=== PATIENT | male | born 1990 | race Caucasian/White ===

== ENCOUNTER → 2018-08-05 09:54 | Outpatient (CLI) | payer MEDICAID, SELFPAY ==
[2018-08-05 14:05] LABS: Basophils % 0.4 % (0.1-2.0); Eosinophils # 0.2 K/mm3 (0.0-0.4); Eosinophils % 2.3 % (0.1-12.0); Hematocrit 51.2 % (42.0-52.0); Hemoglobin 16.8 g/dL (14.1-18.0); Lymphocytes % 30.3 % (10-50); Mean Corpuscular HGB Conc 32.8 g/dL (31.8-35.4); Mean Corpuscular Hemoglobin 30.5 pg (27.0-31.2); Mean Platelet Volume 7.6 fl (7.4-10.4); Monocytes # 0.5 K/mm3 (0.1-1.0); Monocytes % 7.9 % (1.7-9.3); Neutrophils # 3.9 K/mm3 (1.8-7.8); Neutrophils % 59.2 % (37.0-80.0); Platelet Count 390 K/mm3 (142-424); Red Cell Distribution Width 13.2 % (11.5-17.5); White Blood Count 6.5 K/mm3 (4.8-10.8)
[2018-08-05 14:50] LABS: Bilirubin,Direct 0.1 mg/dL (0.0-0.2)
[2018-08-05 14:57] LABS: Alanine Aminotransferase 69 U/L (12-78); Albumin Level 4.6 gm/dL (3.4-5.0); Albumin/Globulin Ratio 1.2 (1.1-1.8); Alkaline Phosphatase 75 U/L (46-116); Anion Gap 18.9 mEq/L (5-15); Aspartate Amino Transferase 27 U/L (15-37); Bilirubin,Total 0.6 mg/dL (0.2-1.0); Blood Urea Nitrogen 13 mg/dL (7-18); Calcium 9.4 mg/dL (8.5-10.1); Carbon Dioxide 23 mmol/L (21.0-32.0); Chloride 100 mmol/L (98-107); Chol/HDL Ratio 9.8 (1-3.5); Cholesterol 244 mg/dL (140-200); Creatinine,Serum 1.12 mg/dL (0.70-1.30); Estimated Glomerular Filt Rate 78 ml/min (>60); GFR (African American) 94 ML/MIN (>60); Globulin 3.8 gm/dl (1.3-3.2); Glucose 109 mg/dL (74-106); HDL Cholesterol 25 mg/dL (27-67); LDL Cholesterol 186 mg/dL (0-130); Potassium 3.9 mmoL/L (3.5-5.1); Sodium 138 mmol/L (136-145); Total Protein,Serum 8.4 gm/dL (6.4-8.2); Triglycerides 164 mg/dL (30-200); VLDL Cholesterol 33 mg/dL (0-40)
== END ==
PROVIDERS: Physician Assistant Medical; PCP Nurse Practitioner Family; Visit Provider Nurse Practitioner Family
DX: Z13.220 Encounter for screening for lipoid disorders (principal); Z13.89 Encounter for screening for other disorder; B35.1 Tinea unguium; Z51.81 Encounter for therapeutic drug level monitoring
CPT/HCPCS: 36415; 80053; 80061; 82248; 84443; 85025

== ENCOUNTER 2023-11-02 13:40 | Inpatient (IN) | payer OTHER, SELFPAY ==
[2023-11-02] VITALS (18 sets, daily range): BP systolic 124–164; BP diastolic 83–109; PULSE 90–138; RESP 15–20; TEMP 37–38; O2SAT 91–100; BMI 32.5; BMI 33.4
--- NOTE | 2023-11-02 | CA_ITS ---
APPROVED REPORT EXAM: Comprehensive 2D, Doppler, and color-flow Echocardiogram Coat Examiner: JERMAN Hutton, RVS Ht: 5 ft 8 in Wt: 219lbs BSA: 2.12 BP: 154/102 mmHg Rhythm: ABN EKG Indications: s/p cardiac cath with coronary stenting of the distal LAD, STEMI, CP, Smoker, SOB Echo Enhancing Agent Comments: Technically limited exam due to defibrillator pads in place during exam/patient supine, Best exam possible in named conditions 2D Dimensions IVSd 0.99 cm M: 0.6-1.2 LVEF (Visual) 64.00 % PWd 0.93 cm M: 0.6 - 1.2 LVDd 4.63 cm M: 4.2 - 5.9 LVDs 3.02 cm M: 2.5 - 4.0 Left Atrium 3.93 cm M: 3.0 - 4.0 M-Mode Dimensions RVDd 2.52 cm (0.9-2.6) LA Diam 3.19 cm (1.9-4.0) LVDd 4.04 cm (3.5-5.7) LVDs 3.30 cm (3.5-5.7) IVSd 1.68 cm (0.6-1.1) PWd 1.33 cm (0.6-1.1) EF (Teich) 38.50% EPSs 0.38 cm FS 18.30% EDV (Teich) 71.70 mL TAPSE 1.84 (<1.7) ESV (Teich) 44.10 mL LV Diastology E Decel Time 170 (160-240 msec) E/A Ratio 0.81 MED A' 9.80 cm/s LAT A' 8.50 cm/s Aortic Valve AoV Peak [place]. 139.0 (50-130 cm/s) AO Peak GR. 7.70 mmHg AO Mean GR. 3.80 (<5 mmHg) AO VTI 22.9 (18-25 cm) TOMEKA (VTI) 2.66 (2.5-4.5 cm2) Mitral Valve MV A Velocity 68.0 (40-130 cm/s) E/A Ratio 0.81 Left Ventricle The left ventricle is normal size. Left ventricular systolic function is mildly reduced. There is increased LV wall thickness. There is near akinesis of the apical LV wall, as well as the mid to distal LV almanza (including the anterior, septal, anteroseptal, and anterolateral LV almanza). The basal wall motion is preserved. The left ventricular diastolic function is normal. LVEF is 40-45%. Right Ventricle The right ventricle is normal size. The right ventricular systolic function is normal. Atria The left atrium size is normal. The right atrium size is normal. There is no Doppler evidence of interatrial shunt. Aortic Valve The aortic valve opens well. There is no aortic valvular stenosis. No aortic regurgitation is present. Mitral Valve The mitral valve is normal in structure. No evidence of mitral valve stenosis. Trace mitral regurgitation. Tricuspid Valve The tricuspid valve leaflets are thin and pliable. Trace tricuspid regurgitation. There is insufficient TR jet to estimate RVSP. Pulmonic Valve The pulmonary valve is normal in structure. Trace pulmonic regurgitation. Great Vessels The aortic root is not well-visualized. IVC is normal in size and collapses >50% with inspiration. Pericardium There is no pericardial effusion. Other Information Study Quality: Fair Conclusion Mildly reduced LV systolic function (LVEF 40-45%). Near akinesis of the apical LV wall, as well as the mid to distal LV almanza (including the anterior, septal, anteroseptal, and anterolateral LV almanza). The basal wall motion is preserved. No significant valvular stenosis or regurgitation. Electronically signed by : Swathi Singleton MD 11/04/2023 00:36:29
--- NOTE | 2023-11-02 13:50 | IR_ITS ---
APPROVED REPORT Patient Location: [facility] Developer: SUHAIL Muniz RT (R) PROCEDURES Left heart catheterization Left ventriculogram Selective coronary angiogram Drug-eluting stent deployment to the mid LAD INDICATION Acute anterior ST elevation myocardial infarction, Coronary artery disease Informed consent was obtained prior to the procedure. COMPLICATIONS NONE Estimated Blood Loss: LESS THAN 10 ML TECHNIQUE One percent lidocaine used to anesthetize the right anterior aspect of the wrist. The right radial artery was accessed via the Seldinger technique. A 6 Indonesian sheath was placed in the right radial artery. 2.5 mg of Verapamil, 800 mcg of nitroglycerin, 1mg Lidocaine and 5000 U Heparin were given through the arterial sheath. The papa catheter was also used to perform left heart catheterization, left ventriculogram and selective coronary angiogram. At the end of the diagnostic angiogram therapeutic heparin was administered giving a therapeutic ACT and the guide catheter was placed in left main artery followed by Choice PT extra-support wire placed distally into the LAD. A guide liner was advanced along with a 2 mm x 12 mm noncompliant balloon. The wire was used to push through the occlusion and the balloon was advanced and deployed at 12 lisandra restoring POLINA-3 flow. A 2.5 x 22 mm David frontier stent was placed in the area of interest and deployed at 14 lisandra. An additional 2.5 x 12 mm David frontier stent was then placed distal to the for stent yet still overlapping it and deployed at 15 lisandra. The balloon was brought back and deployed at 20 and then 22 lisandra to post dilate the 22 mm stent. POLINA 0 flow was present at the beginning of the procedure with POLINA-3 flow at the end the procedure. 800 mcg of intracoronary nitroglycerin was administered. At the end of the procedure the apparatus was removed the sheath was removed and hemostasis was achieved using TR banding patient was transferred to the postop holding in stable condition ANGIOGRAPHIC RESULTS The left main artery Normal The left anterior descending artery Is proximally normal followed by mid vessel 30% stenoses. Distally the vessel is bluntly occluded. A large first diagonal artery has an ostial 80% concentric stenosis. The circumflex artery Nondominant yet still large with mild diffuse 10 to 20% luminal irregularities The right coronary artery Is dominant and has proximal 40 to 50% stenoses The MANRIQUEZ ventriculogram reveals Preserved at 55% The left ventricular end-diastolic pressure 15 mmHg IMPRESS[address] Acute anterior ST elevation myocardial infarction involving the mid LAD with successful stenting reducing the lesion to 0% with 2 contiguous drug-eluting stents Persistent severe stenosis in the large first diagonal artery Moderate disease throughout the right coronary artery Preserved ejection fraction Borderline LVEDP PLAN 1. Effient 10 mg daily plus aspirin 81 mg daily 2. LDL of 55 to be achieved with high intensity statin 3. Start beta-blockers and control heart rate 4. Echocardiogram 5. Medical management for the diagonal artery disease at this time as well as the circumflex artery 6. Supportive care for the next 48 hours with continuous telemetry Electronically signed by : Constantino Harvey MD 11/02/2023 14:41:19
--- NOTE | 2023-11-02 13:55 | PC.NURSE ---
Called registration about pt going to labor and delivery nurse
--- NOTE | 2023-11-02 13:57 | [facility].EDCP ---
Discharge Plan Disposition Patient Disposition: Admitted Clinical Impressions Clinical Impression: ST elevation (STEMI) myocardial infarction Discharge ED Provider: Sal Sin HPI General Chief Complaint: Chest Pain Stated Complaint: cp Time Seen by Provider: 11/02/23 13:43 History of Present Illness HPI narrative: Is a 33-year-old male history of psoriasis presenting with chest pain. Patient states that chest pain started yesterday, 10/31 when he was doing push-ups. He does not usually do that much physical activity, thought it was related to that. Has not gotten better or worse since that time. It is waxing and waning, but pretty consistent. It hurt throughout the night. Patient is to came in today, 11/01 because he was hoping to get something for pain and to help him sleep. He has been diaphoretic, clammy, weak, pale. Also feeling short of breath. Symptoms are not as bad as they have been at the time of presentation. Related Data Home Medications Medication Instructions Recorded Confirmed cholecalciferol (vitamin D3) 25 25 mcg PO DAILY 02/16/23 11/02/23 mcg (1,000 unit) capsule cyanocobalamin (vitamin B-12) 1,000 mcg PO DAILY 02/16/23 11/02/23 1,000 mcg capsule vitamin E (dl, acetate) 450 mg 450 mg PO DAILY 02/16/23 11/02/23 (1,000 unit) capsule Allergies Allergy/AdvReac Type Severity Reaction Status Date / Time amoxicillin Allergy Intermediate rash Verified 02/16/23 09:34 [facility] Disclaimer: The information contained in this section may have been updated after the patient was seen, as this information can be updated by other users. Surgical History (Updated 02/16/23 @ 09:36 by OG Morales) Hx of tonsillectomy Social History (Updated 02/16/23 @ 09:40 by OG Morales) Smoking Status: Current every day smoker tobacco type: cigarettes packs per day: 1 years smoked: 20 quit status: not considering quitting alcohol intake: former substance use type: other details: marijuana counseling given: Yes current occupational status: unemployed Travel in the last 8 weeks: None household members: other details: grandmother housing: house marital status: single number of children: 0 ROS Obtained: Yes All systems reviewed & no additional complaints except as documented Physical Exam General General appearance: alert, anxious and in distress Head Head exam: atraumatic and normocephalic Eye Eye exam: Present normal appearance, PERRL and EOMI ENT ENT exam: Present mucous membranes moist Neck Neck exam: Present normal inspection, full ROM and trachea midline Chest Chest inspection: Present normal inspection and symmetric chest wall rise Respiratory Respiratory exam: Present normal lung sounds bilaterally; Absent respiratory distress, wheezes, stridor, accessory muscle use or prolonged expiratory phase Cardiovascular Cardiovascular exam: Present normal rhythm and tachycardia Abdominal Exam Abdominal exam: Present soft; Absent distention, tenderness, guarding, rebound or rigidity Extremities Exam Extremities exam: Absent edema Neurological Exam Neurological exam: Present alert, oriented X3, CN II-XII intact and normal gait; Absent motor sensory deficit Skin Skin exam: Present diaphoresis; Absent warm or erythema HEART Score HEART Score HEART Score assessment performed?: Yes History (anamnesis): Highly suspicious ECG: Significant ST-deviation Age: <45 years Risk factors: No known risk factors Troponin: > 3x normal limit HEART Score: 6 Critical Care Critical Care Time Critical Care Time: Yes (cv) Attestation: On 11/02/23, the high probability of a clinically significant, sudden or life threatening deterioration of the following system(s) required my full and direct attention, intervention and personal management. The time I documented below is in addition to time spent performing reported procedures but includes the following listed in this critical care notation. Total Time Total Critical Care Time: 45 Medical Decision Making Medical Records Medical records reviewed: Yes I reviewed the patient's medical records. Sung Inquiry Pt receiving controlled substance: No Sung was queried for this patient: No Vital Signs Vital Signs: 11/02/23 13:40 11/02/23 13:40 Temperature 98.6 F Temperature Source Oral Pulse Rate 133 H Pulse Rate [Right] 138 H Respiratory Rate 19 Blood Pressure [Right Arm] 164/108 H Blood Pressure Mean [Right Arm] 126 02 Sat by Pulse Oximetry 95 Oxygen Delivery Method Room Air Lab Data Labs: Lab Results 11/02/23 13:45: WBC 15.9 H, RBC 6.03, Hgb 18.6 H, Hct 56.4 H, MCV 93.5, MCH 30.8, MCHC 33.0, RDW 13.5, Plt Count 291, MPV 8.2, Neut % (Auto) 85.1 H, Lymph % (Auto) 6.5 L, [place] % (Auto) 6.2, Eos % (Auto) 1.2, Baso % (Auto) 1.0, Neut # (Auto) 13.5 H, Lymph # (Auto) 1.0, [place] # (Auto) 1.0, Eos # (Auto) 0.2, Baso # (Auto) 0.2, Sodium 136, Potassium 3.7, Chloride 101, Carbon Dioxide 23, Anion Gap 15.7 H, BUN 13, Creatinine 1.10, Estimated Creat Clear 132, Estimated GFR 76, Est GFR ( Amer) 92, Glucose 118 H, Calcium 10.2, Total Bilirubin 1.6 H, AST 97 H, ALT 52, Alkaline Phosphatase 77, Troponin I 17.10 H, NT-Pro-B Natriuret Pep 5600 H, Total Protein 9.5 H, Albumin 5.1 H, Globulin 4.4 H, Albumin/Globulin Ratio 1.2, LDL Cholesterol Direct 104.04 11/02/23 14:05: Activated Clotting Time > 400 H* 11/02/23 13:45 11/02/23 13:45 Response Orders (Tests/Meds): ED MEDICATIONS Generic Name Dose Route Start Last Admin Trade Name Freq PRN Reason Stop Dose Admin Aspirin 81 mg 11/03/23 09:00 Aspirin Ec 81mg Tablet PO 12/03/23 08:59 DAILY [facility] Atorvastatin Calcium 80 mg 11/02/23 21:00 Atorvastatin 40mg Tablet PO 12/02/23 20:59 HS [facility] Carvedilol 6.25 mg 11/02/23 21:00 Carvedilol 6.25mg Tablet PO 12/02/23 20:59 BID JANAY Fentanyl Citrate 50 mcg 11/02/23 13:56 11/02/23 14:25 Fentanyl 100mcg/2ml Vial IV 11/03/23 01:56 200 mcg Q3MINP PRN Administration Moderate to Severe Pain (4-10) Fentanyl Citrate 25 mcg 11/02/23 13:56 Fentanyl 250mcg/5ml Vial IV 11/03/23 01:56 Q3MINP PRN Moderate to Severe Pain (4-10) Fentanyl Citrate 50 mcg 11/02/23 13:56 Fentanyl 250mcg/5ml Vial IV 11/03/23 01:56 Q3MINP PRN Moderate to Severe Pain (4-10) Fentanyl Citrate 25 mcg 11/02/23 13:56 Fentanyl 100mcg/2ml Vial IV 11/03/23 01:56 Q3MINP PRN Moderate to Severe Pain (4-10) Flumazenil 0.2 mg 11/02/23 13:56 Flumazenil 0.1mg/Ml 5ml Vial IV 11/03/23 01:56 NEEDED PRN Sedation Heparin Sodium (Porcine) 10,000 unit 11/02/23 13:56 11/02/23 14:24 Heparin 1,000 Units/Ml 10ml Vial (Utility Hand) IV 11/02/23 17:56 9,900 unit NEEDED PRN Administration Emergency Box Screw Machine Setter Hydralazine HCl 20 mg 11/02/23 13:56 Hydralazine 20mg/Ml Vial IV 11/02/23 17:56 ONCE PRN sbp>160 Adenosine 180 mg/ Sodium 90 mls @ 538.866 mls/hr 11/02/23 13:56 Chloride IV 11/02/23 17:56 ONCE PRN fractional flow reserve 180 MCG/KG/MIN Adenosine 90 mg/ Sodium 90 mls @ 1,077.732 mls/hr 11/02/23 13:56 Chloride IV 11/02/23 17:56 ONCE PRN fractional flow reserve 180 MCG/KG/MIN Sodium Chloride 1,000 mls @ 25 mls/hr 11/02/23 14:00 11/02/23 14:24 Sod Chloride 0.9% 500ml Bag IV 11/03/23 13:56 25 mls/hr .Q25H JANAY Administration Irbesartan 75 mg 11/02/23 15:15 Irbesartan 75mg Tablet PO 12/02/23 15:14 DAILY JANAY Labetalol HCl 20 mg 11/02/23 13:56 Labetalol 20mg/4ml Syringe IV 11/02/23 17:56 ONCE PRN sbp>160 Midazolam HCl 1 mg 11/02/23 13:56 Midazolam 2mg/2ml Vial IV 11/03/23 01:56 Q3MINP PRN Sedation Midazolam HCl 1 mg 11/02/23 13:56 11/02/23 14:24 Midazolam Hcl 1mg/1ml 5ml Vial IV 11/03/23 01:56 9 mg Q3MINP PRN Administration Sedation Miscellaneous 1 each 11/02/23 14:37 Consider Pt For Dual Antiplatelet Therapy At Discharge-Stent NOTAPPLIC 12/02/23 14:36 NEEDED PRN Reminder for s/p stent Naloxone HCl 0.4 mg 11/02/23 13:56 Naloxone 0.4mg/Ml Vial IV 11/03/23 01:56 Q5MINP PRN Decreased Respirations Nitroglycerin 800 mcg 11/02/23 13:56 11/02/23 14:24 Nitroglycerin 800mcg/8ml Syr (Utility Hand) IA 11/02/23 17:56 800 mcg NEEDED PRN Administration Emergency Box Screw Machine Setter Prasugrel 10 mg 11/03/23 09:00 Prasugrel 10mg Tab PO 12/03/23 08:59 DAILY JANAY Protamine Sulfate 50 mg 11/02/23 13:56 Protamine Sulfate 50mg/5ml Vial (Utility Hand) IV 11/02/23 17:56 ONCE PRN act>200 Sodium Chloride 10 ml 11/02/23 14:37 Sodium Chloride 0.9% 10ml Flush Syringe IV 12/02/23 14:36 NEEDED PRN Maintain IV Site Discontinued Medications Generic Name Dose Route Start Last Admin Trade Name Freq PRN Reason Stop Dose Admin Aspirin 324 mg 11/02/23 14:08 11/02/23 14:09 Aspirin 81mg Chewable Tablet PO 11/02/23 14:09 324 mg ONCE ONE Administration Diphenhydramine HCl 50 mg 11/02/23 13:56 11/02/23 14:23 Diphenhydramine 50mg/Ml Vial IV 11/02/23 13:57 50 mg ONCE ONE Administration Heparin Sodium/Sodium Chloride 3,000 unit 11/02/23 13:56 11/02/23 14:23 Heparin 1,000 Units/500ml Ns (Utility Hand) IV 11/02/23 13:57 3,000 unit ONCE ONE Administration Iopamidol 230 ml 11/02/23 15:00 11/02/23 15:01 Iopamidol-370 (76%);100ml Bottle IV 11/02/23 15:01 230 ml ONCE ONE Administration Lidocaine HCl 20 ml 11/02/23 13:56 11/02/23 14:23 Lidocaine 1% 10ml Mdv IJ 11/02/23 13:57 10 ml ONCE ONE Administration Lidocaine HCl 20 ml 11/02/23 13:56 Lidocaine 1% 5ml Pf Vial IJ 11/02/23 13:57 ONCE ONE Metoprolol Tartrate 10 mg 11/02/23 14:33 11/02/23 14:35 Metoprolol Tartrate 5mg/5ml Vial IV 11/02/23 14:34 10 mg ONCE ONE Administration Metoprolol Tartrate 25 mg 11/02/23 14:51 11/02/23 14:53 Metoprolol Tartrate 50mg Tablet PO 11/02/23 14:52 25 mg ONCE ONE Administration Prasugrel 60 mg 11/02/23 14:35 11/02/23 14:52 Prasugrel 10mg Tab PO 11/02/23 14:36 60 mg ONCE STA Administration Verapamil HCl 2.5 mg 11/02/23 13:56 11/02/23 14:23 Verapamil 2.5mg/Ml 2ml Vial IV 11/02/23 13:57 2.5 mg ONCE ONE Administration ORDERS Category Date Time Status Consult to Cardiac Rehabilitation [CONS] Routine Cons 11/02/23 14:37 Active Consult to Cardiology [CONS] Routine Cons 11/02/23 15:14 Active CXR 2 view (NOT portable) [XR chest 2V] Stat Exams 11/02/23 15:10 Ordered Brain Natriuretic Peptide Stat Lab 11/02/23 13:45 Completed Complete Blood Count Auto Diff Stat Lab 11/02/23 13:45 Results Comprehensive Metabolic Panel Stat Lab 11/02/23 13:45 Completed Direct LDL Cholesterol Routine Lab 11/02/23 13:45 Completed Troponin I Q3H Lab 11/02/23 17:00 Ordered Troponin I Q3H Lab 11/02/23 20:00 Ordered Troponin I Stat Lab 11/02/23 13:45 Completed CA echo doppler complete Routine Y 11/02/23 Completed ECG Request NEEDED Y 11/02/23 14:45 Ordered MDM Narrative Medical Decision Narrative: Is a 33-year-old male history of psoriasis presenting with chest pain. Patient states that chest pain started yesterday, 10/31 when he was doing push-ups. He does not usually do that much physical activity, thought it was related to that. Has not gotten better or worse since that time. It is waxing and waning, but pretty consistent. It hurt throughout the night. Patient is to came in today, 11/01 because he was hoping to get something for pain and to help him sleep. He has been diaphoretic, clammy, weak, pale. Also feeling short of breath. Symptoms are not as bad as they have been at the time of presentation. History was obtained via conversation with patient. On arrival, patient hemodynamically stable, alert, oriented x4, appropriate, GCS 15, moving all extremities spontaneously, pupils equal and reactive to light. Full physical exam performed and significant for hypertensive, tachycardic patient is diaphoretic and anxious. Cardiac exam within normal limits. Pulses are equal and symmetric. Lungs are clear to auscultation bilaterally. Differential includes anxiety, tamponade, CHF, ACS, SC, coronary artery dissection, pneumothorax, PE, dissection, pericarditis, myocarditis, pneumothorax, aortic aneurysm, pneumonia, bronchitis, among others. Patient was given 324 aspirin p.o. for symptomatic management and correction of underlying abnormalities. Initial EKG concerning for multivessel disease. Patient has ST elevations in V2 through V6, 2, 3, aVF and reciprocal depressions in aVR. Workup independently interpreted and significant for troponin elevated at 17.1. BNP 5600. Nonactionable CBC or chemistry. See radiology read for full review of final results. Patient placed on database manager, ZOLL was placed, initial BP 168/90, tachycardic to 143, saturation 98% on room air. Cardiology was contacted and EKG was sent to blanket cutting machine operator on-call. Catheterization lab was activated. given patient presentation, workup, history, this most likely represents acute STEMI. Because patient high risk for clinical decompensation, deemed appropriate for inpatient admission. Results were relayed to patient who voiced understanding and patient was agreeable to inpatient admission and management. Patient was admitted to the hospital for further definitive management.
[2023-11-02 14:00] LABS: Basophils # 0.2 K/mm3 (0-0.2); Eosinophils # 0.2 K/mm3 (0.0-0.4); Eosinophils % 1.2 % (0.1-12.0); Hematocrit 56.4 % (42.0-52.0); Lymphocytes % 6.5 % (10-50); Mean Corpuscular Hemoglobin 30.8 pg (27.0-31.2); Mean Corpuscular Volume 93.5 fl (80-94); Mean Platelet Volume 8.2 fl (7.4-10.4); Monocytes % 6.2 % (1.7-9.3); Neutrophils # 13.5 K/mm3 (1.8-7.8); Neutrophils % 85.1 % (37.0-80.0); Platelet Count 291 K/mm3 (142-424); Red Blood Count 6.03 M/mm3 (4.60-6.20); Red Cell Distribution Width 13.5 % (11.5-17.5); White Blood Count 15.9 K/mm3 (4.8-10.8)
[2023-11-02 14:04] LABS: Chloride 101 mmol/L (98-107); Sodium 136 mmol/L (136-145)
[2023-11-02 14:05] LABS: Potassium 3.7 mmoL/L (3.5-5.1)
[2023-11-02 14:07] LABS: Alanine Aminotransferase 52 U/L (12-78); Alkaline Phosphatase 77 U/L (38-126); Aspartate Amino Transferase 97 U/L (17-59); Bilirubin,Total 1.6 mg/dl (0.2-1.3); Blood Urea Nitrogen 13 mg/dl (9-20); Creatinine Clearance Estimated 132 mL/min (50-200); Estimated Glomerular Filt Rate 76 ml/min (>60); GFR (African American) 92 ML/MIN (>60)
[2023-11-02 14:08] LABS: Albumin Level 5.1 g/dl (3.5-5.0); Albumin/Globulin Ratio 1.2 (1.1-1.8); Anion Gap 15.7 mEq/L (5-15); Calcium 10.2 mg/dl (8.4-10.2); Carbon Dioxide 23 mmol/L (22.0-30.0); Globulin 4.4 g/dL (1.3-3.2); Glucose 118 mg/dl (74-100); Total Protein,Serum 9.5 g/dl (6.3-8.2)
[2023-11-02] MEDS: ASPIRIN 81MG CHEWABLE TABLET 324 MG PO (14:09)
[2023-11-02 14:17] LABS: NT Pro Brain Natriuretic Pep. 5600 pg/mL (0-125)
[2023-11-02] MEDS: VERAPAMIL 2.5MG/ML 2ML VIAL 2.5 MG IV (14:23)
[2023-11-02] MEDS: HEPARIN 1,000 UNITS/500ML NS (CATH LAB) 3000 UNIT IV (14:23)
[2023-11-02] MEDS: LIDOCAINE 1% 10ML MDV 20 ML IJ (14:23)
[2023-11-02] MEDS: diphenhydrAMINE 50MG/ML VIAL 50 MG IV (14:23)
[2023-11-02] MEDS: HEPARIN 1,000 UNITS/ML 10ML VIAL (CATH LAB) 10000 UNIT IV (14:24)
[2023-11-02] MEDS: MIDAZOLAM HCL 1MG/1ML 5ML VIAL 1 MG IV (14:24)
[2023-11-02] MEDS: 0.9 % SODIUM CHLORIDE 500 ML 25 ML IV (14:24)
[2023-11-02] MEDS: NITROGLYCERIN 800MCG/8ML SYR (CATH LAB) 800 MCG IA (14:24)
[2023-11-02] MEDS: FENTANYL 100MCG/2ML VIAL 50 MCG IV (14:25)
[2023-11-02 14:35] LABS: MANUAL DIFFERENTIAL MANUAL DIFFERENTIAL (MANUAL DIFF)
[2023-11-02] MEDS: METOPROLOL TARTRATE 5MG/5ML VIAL 10 MG IV (14:35)
[2023-11-02 14:52] LABS: Hemoglobin 18.6 g/dL (14.1-18.0)
[2023-11-02] MEDS: PRASUGREL 10MG TAB 60 MG PO (14:52)
[2023-11-02] MEDS: METOPROLOL TARTRATE 50MG TABLET 25 MG PO (14:53)
--- NOTE | 2023-11-02 14:57 | EXP.CARD.CON ---
History of Present Illness History of Present Illness Consult date: 11/02/23 Consult reason: chest pain Chief complaint: chest pain History of present illness: ER NOTE: This ia a 33-year-old male with a history of psoriasis presenting with chest pain. Patient states that chest pain started yesterday, 10/31 when he was doing push-ups. He does not usually do that much physical activity, thought it was related to that. Has not gotten better or worse since that time. It is waxing and waning, but pretty consistent. It hurt throughout the night. Patient is to came in today, 11/01 because he was hoping to get something for pain and to help him sleep. He has been diaphoretic, clammy, weak, pale. Also feeling short of breath. Symptoms are not as bad as they have been at the time of presentation. History was obtained via conversation with patient. On arrival, patient hemodynamically stable, alert, [oriented x4, ][appropriate, ]GCS [15], moving all extremities spontaneously, pupils equal and reactive to light. Full physical exam performed and significant for hypertensive, tachycardic patient is diaphoretic and anxious. Cardiac exam within normal limits. Pulses are equal and symmetric. Lungs are clear to auscultation bilaterally. Differential includes anxiety, tamponade, CHF, ACS, [place], coronary artery dissection, pneumothorax, PE, dissection, pericarditis, myocarditis, pneumothorax, aortic aneurysm, pneumonia, bronchitis, among others. Patient was given 324 aspirin p.o. for symptomatic management[ and correction of underlying abnormalities]. Initial EKG concerning for multivessel disease. Patient has ST elevations in V2 through V6, 2, 3, aVF and reciprocal depressions in aVR. Workup independently interpreted and significant for []. See radiology read for full review of final results. Patient placed on biomedical engineering technician, ZOLL was placed, initial BP 168/90, tachycardic to 143, saturation 98% on room air. Cardiology was contacted and EKG was sent to credit checker on-call. Catheterization lab was activated. given patient presentation, workup, history, this most likely represents acute STEMI. Because patient high risk for clinical decompensation, deemed appropriate for inpatient admission. Results were relayed to patient who voiced understanding and patient was agreeable to inpatient admission and management. Patient was admitted to the hospital for further definitive management. Cards note: This is a 33 year old male who is admitted for monitoring post stemi. Patient is s/p [facility] with stenting to LAD with 2 BRYSON. Patient has severe persistent stenosis in the large first diagonal artery and moderate disease throughout the right coronary artery. Patient has been started on Effient and aspirin. Echocardiogram is pending. Labs as follow: WBC 15.9, hemoglobin 18.6, sodium 136, potassium 3.7, creatinine 1.1, total bili 1.6, AST 97, troponin 17.1 and proBNP 5600. Chest xray pending. [facility] Disclaimer: The information contained in this section may have been updated after the patient was seen, as this information can be updated by other users. Surgical History (Updated 02/16/23 @ 09:36 by OG Morales) Hx of tonsillectomy Social History (Updated 02/16/23 @ 09:40 by OG Morales) Smoking Status: Current every day smoker tobacco type: cigarettes packs per day: 1 years smoked: 20 quit status: not considering quitting alcohol intake: former substance use type: other details: marijuana counseling given: Yes current occupational status: unemployed Travel in the last 8 weeks: None household members: other details: grandmother housing: house marital status: single number of children: 0 Review of Systems *Cardiovascular Cardiovascular: Reports chest pain and Reports dyspnea *Respiratory Respiratory: Reports dyspnea Exam Data for Last 24 hours Vital signs and Labs for Last 24 Hours: Temp Pulse Resp BP Pulse Ox O2 Del Method 98.6 F 138 H 19 164/108 H 95 Room Air 11/02/23 14:30 11/02/23 14:30 11/02/23 14:30 11/02/23 14:30 11/02/23 13:40 11/02/23 14:30 Laboratory Results - last 24 hr 11/02/23 13:45: WBC 15.9 H, RBC 6.03, Hgb 18.6 H, Hct 56.4 H, MCV 93.5, MCH 30.8, MCHC 33.0, RDW 13.5, Plt Count 291, MPV 8.2, Neut % (Auto) 85.1 H, Lymph % (Auto) 6.5 L, [place] % (Auto) 6.2, Eos % (Auto) 1.2, Baso % (Auto) 1.0, Neut # (Auto) 13.5 H, Lymph # (Auto) 1.0, [place] # (Auto) 1.0, Eos # (Auto) 0.2, Baso # (Auto) 0.2, Sodium 136, Potassium 3.7, Chloride 101, Carbon Dioxide 23, Anion Gap 15.7 H, BUN 13, Creatinine 1.10, Estimated Creat Clear 132, Estimated GFR 76, Est GFR ( Amer) 92, Glucose 118 H, Calcium 10.2, Total Bilirubin 1.6 H, AST 97 H, ALT 52, Alkaline Phosphatase 77, Troponin I 17.10 H, NT-Pro-B Natriuret Pep 5600 H, Total Protein 9.5 H, Albumin 5.1 H, Globulin 4.4 H, Albumin/Globulin Ratio 1.2 I & O for Last 24 hours: Intake & Output 10/30/23 10/31/23 11/01/23 11/02/23 22:59 23:59 23:59 23:59 Weight 220 lb Constitutional Constitutional: no acute distress *Routine Respiratory Exam Respiratory: Present CTA bilaterally and symmetric chest movement *Routine Cardiovascular Exam Cardiovascular: Present RRR, Normal S1 and Normal S2 *Routine Abdominal Exam Abdominal: Present soft and normoactive bowel sounds; Absent tenderness *Routine Extremities Exam Extremities: Present full ROM and normal capillary refill; Absent edema *Routine Skin Exam Skin: Present intact, dry and warm Detailed Neck Exam: Thyroids Thyroid: Absent bruit Meds Home Medications and Allergies Home Medications Medication Instructions Recorded Confirmed Type apremilast 10 mg (4)-20 mg (4)-30 See Rx Instructions PO PER PKG DIR 02/16/23 02/16/23 Rx mg (47) tablets in a dose pack #55 tabs (Otezla Starter) cholecalciferol (vitamin D3) 25 25 mcg PO DAILY 02/16/23 02/16/23 History mcg (1,000 unit) capsule cyanocobalamin (vitamin B-12) 1,000 mcg PO DAILY 02/16/23 02/16/23 History 1,000 mcg capsule vitamin E (dl, acetate) 450 mg 450 mg PO DAILY 02/16/23 02/16/23 History (1,000 unit) capsule New Prescriptions to Start Prescriptions: Allergies Allergy/AdvReac Type Severity Reaction Status Date / Time amoxicillin Allergy Intermediate rash Verified 02/16/23 09:34 Assessment and Plan *Assessment and plan (1) ST elevation (STEMI) myocardial infarction: Status: Acute Category: Medical Code(s): I21.3 - ST elevation (STEMI) myocardial infarction of unspecified site (2) Coronary artery disease: Status: Acute Category: Medical Code(s): I25.10 - Atherosclerotic heart disease of [place] coronary artery without angina pectoris (3) HTN (hypertension): Status: Acute Category: Medical Code(s): I10 - Essential (primary) hypertension (4) Hyperlipidemia: Status: Acute Category: Medical Code(s): E78.5 - Hyperlipidemia, unspecified Plan Coronary artery disease STEMI -Status post stenting to LAD with 2 BRYSON -Continue DAPT therapy with Effient 10 mg daily and aspirin 81 mg daily -Start Coreg 6.25 mg p.o. twice daily and atorvastatin 40 mg p.o. daily -LDL goal less than 55, start high-dose statin -Echocardiogram is pending -Telemetry monitoring for 48 hours Hypertension -Start irbesartan 75 mg p.o. daily along with Coreg 6.25 mg p.o. twice daily. Hyperlipidemia -Start atorvastatin 40 mg p.o. daily Tobacco use -Smoking cessation advised CV summary 11/02/2023: Monitor for 48 hours status post STEMI, echocardiogram pending
[2023-11-02] MEDS: IOPAMIDOL-370 (76%);100ML BOTTLE 230 ML IV (15:01)
[2023-11-02 15:02] LABS: CATHL Activated Clotting Time > 400 SEC (74-125)
[2023-11-02 15:41] LABS: Direct LDL Cholesterol 104.04 mg/dL (100-129)
[2023-11-02 15:54] LABS: Lymphocytes % 15 % (10-50); Monocytes % 4 % (2-9); Neutrophils % 80 % (42-76); Platelet Estimate Normal; RBC Morphology Normal; Total Cells Counted 100
[2023-11-02] MEDS: IRBESARTAN 75MG TABLET 75 MG PO (16:18)
--- NOTE | 2023-11-02 16:45 | XR_ITS ---
PROCEDURE INFORMATION: Exam: XR Chest Exam date and time: 11/02/2023 4:57 PM Age: 33 years old Clinical indication: Shortness of breath; Additional info: SOB TECHNIQUE: Imaging protocol: Radiologic exam of the chest. Views: 1 view. COMPARISON: No relevant prior studies available. FINDINGS: Lungs: No evidence of acute airspace infiltrate. No pulmonary edema. Pleural spaces: No significant pleural effusion. No pneumothorax. Heart/Mediastinum: Cardiomediastinal sil[place]hette is within normal limits. Bones/joints: No evidence of acute osseous abnormality. IMPRESSION: No acute findings.
--- NOTE | 2023-11-02 16:46 | PC.NURSE ---
pt is complaining of pain in ULQ . Pts temp was verbally reported to nurse
[2023-11-02] MEDS: KETOROLAC 30MG/ML VIAL 15 MG IV ×2 (16:49→23:09)
--- NOTE | 2023-11-02 17:07 | P.HP_ITS ---
History of Present Illness *Admission Date: 11/02/23 *Reason for visit:: chest pain *History of present illness: patient is a 33-year-old male with past medical history of anxiety, tobacco use, hypertension hyperlipidemia CAD who presents to the hospital due to chest pain. Patient mentions he has been having intermittent chest pain that is associated with excessive sweating, weakness. Patient also had associated shortness of breath. He was noticed to have ST elevation on EKG. Patient otherwise denied fever chills diarrhea constipation dysuria. [facility] Disclaimer: The information contained in this section may have been updated after the patient was seen, as this information can be updated by other users. Medical History (Updated 11/02/23 @ 16:04 by Monika Varela RN) Anxiety and depression Anxiety Hypertension Surgical History (Updated 02/16/23 @ 09:36 by OG Morales) Hx of tonsillectomy Social History (Updated 11/02/23 @ 16:05 by Monika Varela RN) Smoking Status: Current every day smoker tobacco type: cigarettes packs per day: 1 years smoked: 20 quit status: not considering quitting alcohol intake: former substance use type: other details: marijuana counseling given: Yes current occupational status: unemployed Travel in the last 8 weeks: None household members: other details: grandmother housing: house marital status: single number of children: 0 Review of Systems Review of Systems Review of systems (narrative): as per HPI Meds Home Medications and Allergies Home Medications Medication Instructions Recorded Confirmed Type cholecalciferol (vitamin D3) 25 25 mcg PO DAILY 02/16/23 11/02/23 History mcg (1,000 unit) capsule cyanocobalamin (vitamin B-12) 1,000 mcg PO DAILY 02/16/23 11/02/23 History 1,000 mcg capsule vitamin E (dl, acetate) 450 mg 450 mg PO DAILY 02/16/23 11/02/23 History (1,000 unit) capsule New Prescriptions to Start Prescriptions: Allergies Allergy/AdvReac Type Severity Reaction Status Date / Time amoxicillin Allergy Intermediate rash Verified 02/16/23 09:34 Exam Data for Last 24 hours Vital signs and Labs for Last 24 Hours: Temp Pulse Resp BP Pulse Ox O2 Del Method 100.4 F H 105 H 20 145/108 H 92 L Room Air 11/02/23 16:00 11/02/23 17:00 11/02/23 17:00 11/02/23 17:00 11/02/23 17:00 11/02/23 17:00 Laboratory Results - last 24 hr 11/02/23 13:45: WBC 15.9 H, RBC 6.03, Hgb 18.6 H, Hct 56.4 H, MCV 93.5, MCH 30.8, MCHC 33.0, RDW 13.5, Plt Count 291, MPV 8.2, Neut % (Auto) 85.1 H, Lymph % (Auto) 6.5 L, [place] % (Auto) 6.2, Eos % (Auto) 1.2, Baso % (Auto) 1.0, Neut # (Auto) 13.5 H, Lymph # (Auto) 1.0, [place] # (Auto) 1.0, Eos # (Auto) 0.2, Baso # (Auto) 0.2, Total Counted 100, Neutrophils % (Manual) 80 H, Band Neutrophils % 1.0, Lymphocytes % (Manual) 15, Monocytes % (Manual) 4, Platelet Estimate Normal, RBC Morphology Normal, Sodium 136, Potassium 3.7, Chloride 101, Carbon Dioxide 23, Anion Gap 15.7 H, BUN 13, Creatinine 1.10, Estimated Creat Clear 132, Estimated GFR 76, Est GFR ( Amer) 92, Glucose 118 H, Calcium 10.2, Total Bilirubin 1.6 H, AST 97 H, ALT 52, Alkaline Phosphatase 77, Troponin I 17.10 H, NT-Pro-B Natriuret Pep 5600 H, Total Protein 9.5 H, Albumin 5.1 H, Globulin 4.4 H, Albumin/Globulin Ratio 1.2, LDL Cholesterol Direct 104.04 11/02/23 14:05: Activated Clotting Time > 400 H* I & O for Last 24 hours: Intake & Output 10/30/23 10/31/23 11/01/23 11/02/23 22:59 23:59 23:59 23:59 Intake Total 0 / 0 Output Total 0 / 0 Balance 0 / 0 Weight 99.79 kg Constitutional Constitutional: no acute distress *Routine HEENT Exam Head: Present normocephalic Eye: Present EOMI and PERRL ENT: Present mucous membranes moist *Routine Neck Exam Neck: Present supple; Absent lymphadenopathy *Routine Respiratory Exam Respiratory: Present CTA bilaterally *Routine Cardiovascular Exam Cardiovascular: Present RRR *Routine Abdominal Exam Abdominal: Present soft and normoactive bowel sounds; Absent tenderness *Routine Rectal Exam Rectal:: deferred *Routine Genitalia Exam Genitalia:: deferred *Routine Extremities Exam Extremities: Absent cyanosis, clubbing or edema *Routine Skin Exam Skin: Present warm; Absent rash *Routine Neurological Exam Neurological: Present alert and oriented X3 Assessment and Plan *Assessment and plan (1) Hyperlipidemia: Status: Acute Category: Medical Code(s): E78.5 - Hyperlipidemia, unspecified (2) HTN (hypertension): Status: Acute Category: Medical Code(s): I10 - Essential (primary) hypertension (3) Coronary artery disease: Status: Acute Category: Medical Code(s): I25.10 - Atherosclerotic heart disease of [place] coronary artery without angina pectoris (4) ST elevation (STEMI) myocardial infarction: Status: Acute Category: Medical Code(s): I21.3 - ST elevation (STEMI) myocardial infarction of unspecified site (5) Psoriasis: Status: Acute Category: Medical Code(s): L40.9 - Psoriasis, unspecified Plan I am good thank you patient is a 33-year-old male with past medical history of anxiety, tobacco use, hypertension hyperlipidemia CAD who presents to the hospital due to chest pain. Patient mentions he has been having intermittent chest pain that is associated with excessive sweating, weakness. Patient also had associated shortness of breath. He was noticed to have ST elevation on EKG. Patient otherwise denied fever chills diarrhea constipation dysuria. Assessment and plan STEMI CAD Elevated proBNP Status post stenting Drug-eluting stents to LAD Started on DAPT with Effient and aspirin Started on Coreg, statin Echocardiogram has been ordered Monitor on cardiac telemetry Leukocytosis likely reactive -Monitor Polycythemia, hemoglobin 18.6 Likely secondary to chronic hypoxia/hemoconcentration-monitor Fever Likely postprocedure Check flu, COVID test Check x-ray Check urine Hold off of antibiotics for now Hypertension Continue Coreg, irbesartan Hyperlipidemia Continue statin Tobacco use Counseled on tobacco cessation DVT prophylaxis-heparin
[2023-11-02] MEDS: ALPRAZolam 0.25MG TABLET 0.25 MG PO (18:20)
--- NOTE | 2023-11-02 19:23 | PC.NURSE ---
tr band off at 1855
[2023-11-02] MEDS: ATORVASTATIN 40MG TABLET 80 MG PO (20:16)
[2023-11-02] MEDS: CARVEDILOL 6.25MG TABLET 6.25 MG PO (20:16)
--- NOTE | 2023-11-02 22:07 | PC.NURSE ---
TRANSFER OF CARE TO OLGA TREVIÑO @ [phone]
[2023-11-03] VITALS: BP 158/76; PULSE 89; PULSE 90; RESP 17; TEMP 37.7; O2SAT 99
[2023-11-03 04:00] VITALS: BP 125/86; PULSE 94; RESP 16; TEMP 37; O2SAT 94; BMI 33.3
[2023-11-03] MEDS: KETOROLAC 30MG/ML VIAL 15 MG IV (06:14)
[2023-11-03 08:00] VITALS: BP 142/107; PULSE 100; RESP 15; TEMP 36.7; O2SAT 94
[2023-11-03] MEDS: ASPIRIN EC 81MG TABLET 81 MG PO (08:55)
[2023-11-03] MEDS: PRASUGREL 10MG TAB 10 MG PO (08:55)
[2023-11-03] MEDS: IRBESARTAN 75MG TABLET 75 MG PO ×2 (08:55→11:52)
[2023-11-03] MEDS: CARVEDILOL 6.25MG TABLET 6.25 MG PO ×2 (08:55→20:11)
[2023-11-03] MEDS: ALPRAZolam 0.25MG TABLET 0.25 MG PO (09:02)
--- NOTE | 2023-11-03 09:34 | EXP.CARD.PN ---
Subjective Subjective Date: 11/03/23 Time: 08:00 Principal diagnosis: stemi Interval history: Patient denies chest pain or shortness of breath this morning. Reports he is feeling very anxious which is normal for him. Blood pressure elevated with systolic greater than 160 and heart rate remains elevated greater than 100. Oxygen saturation is 94% on room air. Morning labs pending, echocardiogram pending. Exam Data for Last 24 hours Vital signs and Labs for Last 24 Hours: Temp Pulse Resp BP Pulse Ox O2 Del Method 98.1 F 100 H 15 142/107 H 94 L Room Air 11/03/23 08:00 11/03/23 08:00 11/03/23 08:00 11/03/23 08:00 11/03/23 08:00 11/03/23 07:00 Laboratory Results - last 24 hr 11/02/23 13:45: WBC 15.9 H, RBC 6.03, Hgb 18.6 H, Hct 56.4 H, MCV 93.5, MCH 30.8, MCHC 33.0, RDW 13.5, Plt Count 291, MPV 8.2, Neut % (Auto) 85.1 H, Lymph % (Auto) 6.5 L, [place] % (Auto) 6.2, Eos % (Auto) 1.2, Baso % (Auto) 1.0, Neut # (Auto) 13.5 H, Lymph # (Auto) 1.0, [place] # (Auto) 1.0, Eos # (Auto) 0.2, Baso # (Auto) 0.2, Total Counted 100, Neutrophils % (Manual) 80 H, Band Neutrophils % 1.0, Lymphocytes % (Manual) 15, Monocytes % (Manual) 4, Platelet Estimate Normal, RBC Morphology Normal, Sodium 136, Potassium 3.7, Chloride 101, Carbon Dioxide 23, Anion Gap 15.7 H, BUN 13, Creatinine 1.10, Estimated Creat Clear 132, Estimated GFR 76, Est GFR ( Amer) 92, Glucose 118 H, Calcium 10.2, Total Bilirubin 1.6 H, AST 97 H, ALT 52, Alkaline Phosphatase 77, Troponin I 17.10 H, NT-Pro-B Natriuret Pep 5600 H, Total Protein 9.5 H, Albumin 5.1 H, Globulin 4.4 H, Albumin/Globulin Ratio 1.2, LDL Cholesterol Direct 104.04 11/02/23 14:05: Activated Clotting Time > 400 H* I & O for Last 24 hours: Intake & Output 10/31/23 11/01/23 11/02/23 11/03/23 23:59 23:59 23:59 23:59 Intake Total 0 / 0 420 / 420 Output Total 0 / 0 0 / 0 Balance 0 / 0 420 / 420 Weight 220 lb 219 lb 15.988 oz Constitutional Constitutional: no acute distress *Routine Respiratory Exam Respiratory: Present CTA bilaterally and symmetric chest movement *Routine Cardiovascular Exam Cardiovascular: Present RRR, Normal S1 and Normal S2 *Routine Abdominal Exam Abdominal: Present soft and normoactive bowel sounds; Absent tenderness *Routine Extremities Exam Extremities: Present full ROM and normal capillary refill; Absent edema *Routine Skin Exam Skin: Present intact, dry and warm Detailed Neck Exam: Thyroids Thyroid: Absent bruit Progress Note: A&P Assessment and plan (1) Hyperlipidemia: Status: Acute (2) HTN (hypertension): Status: Acute (3) Coronary artery disease: Status: Acute (4) ST elevation (STEMI) myocardial infarction: Status: Acute (5) Psoriasis: Status: Acute Assessment and Plan Assessment and Plan for All Diagnoses:: Coronary artery disease STEMI -Status post stenting to LAD with 2 BRYSON -Continue DAPT therapy with Effient 10 mg daily and aspirin 81 mg daily -Continue Coreg 6.25 mg p.o. twice daily and atorvastatin 40 mg p.o. daily -LDL goal less than 55, start high-dose statin -Echocardiogram shows an ejection fraction of 45% with akinetic distal apical LV wall noted. -Telemetry monitoring for 48 hours New onset HFrEF NYHA II-III Ischemic cardiomyopathy -Echocardiogram shows an ejection fraction of 45% with akinetic distal apical LV wall noted. Repeat limited echo today-change noted -Will transition patient from irbesartan to Entresto 24/26 mg p.o. twice daily -proBNP on admission was greater than 5000 -Give one-time dose of Lasix 20 mg IV, monitor I's and O's -Chest x-ray today negative for acute cardiopulmonary process -Will add Aldactone and Jardiance later Hypertension Tachycardia -Systolic blood pressure greater than 160, heart rate greater than 100 -Will give additional dose of irbesartan this morning as patient has already had morning dose in addition to a one-time dose of 20 mg of Lasix IV. -Tomorrow will transition from irbesartan to Entresto 24/26 mg p.o. twice daily for heart failure with reduced ejection fraction -CT abdomen pelvis: No adrenal mass. Sludge or stones in the gallbladder with gallbladder wall thickening consider right upper quadrant ultrasound. Hyperlipidemia -LDL goal less than 55, LDL is greater than 100, was started on atorvastatin 40 mg p.o. daily 11/02/2023 Tobacco use -Smoking cessation advised CV summary 11/03/2023: Patient remains hypertensive with tachycardia. CT abdomen pelvis is unremarkable for adrenal mass but does show sludge or stones in gallbladder with gallbladder wall thickening. Will order right upper quadrant ultrasound and defer to primary service. Repeat echocardiogram shows no change from yesterday. Chest x-ray stable.
--- NOTE | 2023-11-03 09:38 | XR_ITS ---
FINAL REPORT CLINICAL HISTORY: soa COMPARISON: 11/02/2023 FINDINGS: SINGLE-VIEW CHEST The heart size is normal. The mediastinum is normal. The lungs are clear. There is no pneumothorax. IMPRESSION: No acute cardiopulmonary process. Reviewed, Interpreted and Dictated by Jose A Whitman III, MD Transcribed by Danna Wise Authenticated and [facility]
--- NOTE | 2023-11-03 09:38 | CA_ITS ---
APPROVED REPORT EXAM: Limited 2D, Doppler, and color-flow Echocardiogram Table Top Tile Setter: JERMAN Hutton, RVS Ht: 5 ft 7 in Wt: 219lbs BSA: 2.10 BP: 110/70 mmHg Indications: post stemi 1 day 2D Dimensions LVEF (Garrett's) 42.90 % LV Volume 121.80 mL LV Volume Index 58.766707 mL/m2 M: 34 - 74 EF AP4 48.30 % EF AP2 34.2 % EF BP 42.9 % GL Strain -11.3 % M-Mode Dimensions LVDd 4.88 cm (3.5-5.7) LVDs 4.04 cm (3.5-5.7) EF (Teich) 35.80% FS 17.20% EDV (Teich) 111.70 mL ESV (Teich) 71.70 mL Other Information Study Quality: Fair Conclusion This is a limited TTE to evaluate for post TN mechanical complications in the setting of markedly elevated BP and sinus tachycardia on day 1 post STEMI. Limited windows were obtained. The left ventricle is normal in size. There is increased LV wall thickness. The mid to distal LV almanza, as well as the LV apex, are nearly akinetic. The basal wall motion is preserved. LVEF is 40-45%. Grossly, the RV size and function is normal. No evidence of pericardial effusions. The MV mobility appears normal. However, transmitral Doppler evaluation is not performed in this study. Compared to prior study from 1 day prior on 11/02/2023, there is no change. Electronically signed by : Swathi Singleton MD 11/04/2023 00:46:04
--- NOTE | 2023-11-03 09:53 | CT_ITS ---
FINAL REPORT TECHNIQUE: Postcontrast axial images through the abdomen and pelvis were performed. This study was performed with techniques to keep radiation doses as low as reasonably achievable, (ALARA). Individualized dose reduction techniques using automated exposure control or adjustment of mA and/or kV according to the patient's size were employed. CLINICAL HISTORY: htn, recent MT, r/o adrenal tumor FINDINGS: Abdomen: There is bibasilar atelectasis. The liver is normal in size and attenuation. Sludge or stones are seen in the gallbladder with mild gallbladder wall thickening. The spleen is unremarkable. The adrenals are normal. No adrenal mass is identified. The pancreas is unremarkable. The kidneys enhance appropriately. The aorta is normal in caliber. No free fluid or adenopathy is identified. No findings for mechanical bowel obstruction are identified. Pelvis: The appendix is normal. The urinary bladder is unremarkable. No free fluid, free air, abscess or adenopathy is identified. IMPRESSION: No adrenal mass. Sludge or stones in the gallbladder with gallbladder wall thickening. Consider right upper quadrant ultrasound. Reviewed, Interpreted and Dictated by Jose A Whitman III, MD Transcribed by Danna Wise Authenticated and [facility]
[2023-11-03 10:07] LABS: Basophils # 0.1 K/mm3 (0-0.2); Basophils % 0.4 % (0.1-2.0); Eosinophils # 0.1 K/mm3 (0.0-0.4); Eosinophils % 0.9 % (0.1-12.0); Hematocrit 51.9 % (42.0-52.0); Hemoglobin 17.3 g/dL (14.1-18.0); Lymphocytes # 1.3 K/mm3 (0.7-4.5); Lymphocytes % 9.8 % (10-50); Mean Corpuscular HGB Conc 33.4 g/dL (31.8-35.4); Mean Corpuscular Hemoglobin 31.8 pg (27.0-31.2); Mean Corpuscular Volume 95.3 fl (80-94); Mean Platelet Volume 7.5 fl (7.4-10.4); Monocytes # 1.1 K/mm3 (0.1-1.0); Monocytes % 8.2 % (1.7-9.3); Neutrophils # 10.4 K/mm3 (1.8-7.8); Neutrophils % 80.6 % (37.0-80.0); Platelet Count 259 K/mm3 (142-424); Red Blood Count 5.45 M/mm3 (4.60-6.20); Red Cell Distribution Width 13.6 % (11.5-17.5)
[2023-11-03 10:14] LABS: Anion Gap 14.7 mEq/L (5-15); Blood Urea Nitrogen 19 mg/dl (9-20); Calcium 9.5 mg/dl (8.4-10.2); Carbon Dioxide 23 mmol/L (22.0-30.0); Chloride 104 mmol/L (98-107); Creatinine Clearance Estimated 132 mL/min (50-200); Estimated Glomerular Filt Rate 76 ml/min (>60); GFR (African American) 92 ML/MIN (>60); Glucose 108 mg/dl (74-100); Potassium 3.7 mmoL/L (3.5-5.1); Sodium 138 mmol/L (136-145)
[2023-11-03] MEDS: SODIUM CHLORIDE 0.9% 10ML SYR (RAD ONLY) 10 ML IV (11:11)
[2023-11-03] MEDS: IOPAMIDOL-370 (76%);100ML BOTTLE 75 ML IV (11:12)
--- NOTE | 2023-11-03 11:50 | PC.NURSE ---
Patient refuses to wear ID bracelet or allergy band. States it bothers the psoriasis on his wrists. Education provided regarding importance of wearing bands with patient continuing to refuse
[2023-11-03] MEDS: FUROSEMIDE 20 MG/2 ML VIAL IV (11:51)
[2023-11-03 12:00] VITALS: BP 152/107; PULSE 100; PULSE 108; RESP 19; TEMP 36.7; O2SAT 98
[2023-11-03 14:20] LABS: Microscopic, Urine URINE MICROSCOPIC (MICROSCOPIC)
[2023-11-03 14:26] LABS: Appearance,Urine CLEAR (Clear); Bilirubin,Urine Negative (Negative); Blood, Urine Negative (Negative); Color,Urine YELLOW (Yellow); Glucose,Urine (UA) Negative (Negative); Ketones,Urine 1+ (Negative); Leukocyte Esterase,Urine Negative (Negative); Nitrate,Urine Negative (Negative); PH,Urine 5.5 (5.0-8.5); Protein,Urine Negative (Negative)
[2023-11-03 14:47] LABS: WBC,Urine Occasional #/hpf (0-3)
--- NOTE | 2023-11-03 15:33 | P.PN_ITS ---
Subjective *Date: 11/03/23 *Time: 15:39 Interval history: patient was seen and evaluated at the bedside. No reported acute events overnight, denies chest pain, shortness of breath, nausea, vomiting, abdominal pain. Exam Data for Last 24 hours Vital signs and Labs for Last 24 Hours: Temp Pulse Resp BP Pulse Ox O2 Del Method 98.1 F 108 H 19 152/107 H 98 Room Air 11/03/23 12:00 11/03/23 12:00 11/03/23 12:00 11/03/23 12:00 11/03/23 12:00 11/03/23 15:00 Laboratory Results - last 24 hr 11/02/23 13:45: Total Counted 100, Neutrophils % (Manual) 80 H, Band Neutrophils % 1.0, Lymphocytes % (Manual) 15, Monocytes % (Manual) 4, Platelet Estimate Normal, RBC Morphology Normal, LDL Cholesterol Direct 104.04 11/02/23 14:11: Urine Color Yellow, Urine Appearance Clear, Urine pH 5.5, Ur Specific [place] 1.010, Urine Protein Negative, Urine Glucose (UA) Negative, Urine Ketones 1+, Urine Blood Negative, Urine Nitrate Negative, Urine Bilirubin Negative, Urine Urobilinogen 1.0, Ur Leukocyte Esterase Negative, Urine RBC None, Urine WBC Occasional, Ur Squamous Epith Cells None, Urine Bacteria None 11/03/23 09:55: WBC 13.0 H, RBC 5.45, Hgb 17.3, Hct 51.9, MCV 95.3 H, MCH 31.8 H , MCHC 33.4, RDW 13.6, Plt Count 259, MPV 7.5, Neut % (Auto) 80.6 H, Lymph % (Auto) 9.8 L, [place] % (Auto) 8.2, Eos % (Auto) 0.9, Baso % (Auto) 0.4, Neut # (Auto) 10.4 H, Lymph # (Auto) 1.3, [place] # (Auto) 1.1 H, Eos # (Auto) 0.1, Baso # (Auto) 0.1, Sodium 138, Potassium 3.7, Chloride 104, Carbon Dioxide 23, Anion Gap 14.7, BUN 19 D, Creatinine 1.10, Estimated Creat Clear 132, Estimated GFR 76, Est GFR ( Amer) 92, Glucose 108 H, Calcium 9.5 I & O for Last 24 hours: Intake & Output 10/31/23 11/01/23 11/02/23 11/03/23 23:59 23:59 23:59 23:59 Intake Total 0 / 0 1260 / 1260 Output Total 0 / 0 600 / 600 Balance 0 / 0 660 / 660 Weight 99.79 kg 99.79 kg Constitutional Constitutional: no acute distress *Routine HEENT Exam Head: Present normocephalic Eye: Present EOMI and PERRL ENT: Present mucous membranes moist *Routine Neck Exam Neck: Present supple; Absent lymphadenopathy *Routine Respiratory Exam Respiratory: Present CTA bilaterally *Routine Cardiovascular Exam Cardiovascular: Present RRR *Routine Abdominal Exam Abdominal: Present soft and normoactive bowel sounds; Absent tenderness *Routine Extremities Exam Extremities: Absent cyanosis, clubbing or edema *Routine Skin Exam Skin: Present warm; Absent rash *Routine Neurological Exam Neurological: Present alert and oriented X3 Assessment and Plan *Assessment and plan (1) Hyperlipidemia: Status: Acute Category: Medical Code(s): E78.5 - Hyperlipidemia, unspecified (2) HTN (hypertension): Status: Acute Category: Medical Code(s): I10 - Essential (primary) hypertension (3) Coronary artery disease: Status: Acute Category: Medical Code(s): I25.10 - Atherosclerotic heart disease of [place] coronary artery without angina pectoris (4) ST elevation (STEMI) myocardial infarction: Status: Acute Category: Medical Code(s): I21.3 - ST elevation (STEMI) myocardial infarction of unspecified site (5) Psoriasis: Status: Acute Category: Medical Code(s): L40.9 - Psoriasis, unspecified Plan Patient is a 33-year-old male with past medical history of anxiety, tobacco use, hypertension hyperlipidemia CAD who presents to the hospital due to chest pain. Patient mentions he has been having intermittent chest pain that is associated with excessive sweating, weakness. Patient also had associated shortness of breath. He was noticed to have ST elevation on EKG. Patient otherwise denied fever chills diarrhea constipation dysuria. Assessment and plan STEMI CAD Elevated proBNP Status post stenting limited echo await final cardiology recommendations Drug-eluting stents to LAD Started on DAPT with Effient and aspirin - cardiology wanted to monitor upto 48hrs post stenting Started on Coreg, statin Cardiology ordered -CT abdomen pelvis: No adrenal mass. Sludge or stones in the gallbladder with gallbladder wall thickening consider right upper quadrant ultrasound. RUQ US ordered Leukocytosis likely reactive -Monitor Polycythemia Likely secondary to chronic hypoxia/hemoconcentration-monitor Fever Likely postprocedure Check flu, COVID test Check x-ray Check urine Hold off of antibiotics for now Hypertension Continue Coreg, irbesartan Hyperlipidemia Continue statin Tobacco use Counseled on tobacco cessation DVT prophylaxis-heparin
--- NOTE | 2023-11-03 15:55 | PC.NURSE ---
Pt alert and oriented. Hypertensive and tachycardic. Telemetry continues to show ST elevation. Cardiology aware. Up ad odilia. On room air. Denies pain. Continued anxiety which is improved with transfer from ICU. Scheduled for US tomorrow morning so will be npo after midnight.
[2023-11-03 16:00] VITALS: BP 152/112; PULSE 100; PULSE 105; RESP 19; TEMP 37.3; O2SAT 98
--- NOTE | 2023-11-03 16:38 | PC.NURSE ---
Radha updated on patient's continued hypertension. Discussed continued anxiety with Dr. Briones who states that he will place additional orders for anxiolytics
[2023-11-03 20:00] VITALS: BP 155/98; PULSE 103; PULSE 92; RESP 18; TEMP 37.8; O2SAT 98
[2023-11-03] MEDS: ATORVASTATIN 40MG TABLET 80 MG PO (20:10)
[2023-11-04] VITALS: PULSE 104
[2023-11-04] MEDS: hydrOXYzine pamoate 25MG CAPSULE 25 MG PO (01:27)
[2023-11-04] MEDS: CALCIUM CARBONATE 500MG CHEWTAB 1000 MG PO (03:02)
[2023-11-04 04:00] VITALS: BP 139/88; PULSE 83; PULSE 85; RESP 18; TEMP 37.3; O2SAT 97; BMI 30.7
--- NOTE | 2023-11-04 05:15 | PC.NURSE ---
PATIENT REPORTS HISTORY OF ANXIETY ATTACKS AND NERVOUSNESS. COMPLAINED OF HEARTBURN. RECEIVED TUMS X 2 CHEWABLE TABS AT 0350. NO FURTHER COMPLAINTS VOICED. SR/ST WITH ST ELEVATION ON MONITOR. NO REPORTS OF CHEST PAIN,SOA. FAMILY MEMBER AT BEDSIDE.
[2023-11-04 07:55] VITALS: BP 119/69; PULSE 88; RESP 17; TEMP 37; O2SAT 98
[2023-11-04 08:00] VITALS: PULSE 90
[2023-11-04] MEDS: CARVEDILOL 6.25MG TABLET 6.25 MG PO (08:52)
[2023-11-04] MEDS: PRASUGREL 10MG TAB 10 MG PO (08:52)
[2023-11-04] MEDS: ASPIRIN EC 81MG TABLET 81 MG PO (08:52)
[2023-11-04] MEDS: SACUBITRIL/VALSARTAN 24-26MG TABLET 1 EACH PO (08:52)
[2023-11-04] MEDS: ALPRAZolam 0.25MG TABLET 0.25 MG PO (08:55)
--- NOTE | 2023-11-04 10:45 | EXP.CARD.PN ---
Subjective Subjective Date: 11/04/23 Time: 08:00 Principal diagnosis: stemi Interval history: Patient is doing better this morning. Blood pressure has improved to 119/69 pulse improved to 90 satting 98% on room air. Morning labs reviewed and stable. Exam Data for Last 24 hours Vital signs and Labs for Last 24 Hours: Temp Pulse Resp BP Pulse Ox O2 Del Method 98.6 F 90 17 119/69 98 Room Air 11/04/23 07:55 11/04/23 08:00 11/04/23 07:55 11/04/23 07:55 11/04/23 07:55 11/04/23 09:57 Laboratory Results - last 24 hr 11/02/23 14:11: Urine Color Yellow, Urine Appearance Clear, Urine pH 5.5, Ur Specific [place] 1.010, Urine Protein Negative, Urine Glucose (UA) Negative, Urine Ketones 1+, Urine Blood Negative, Urine Nitrate Negative, Urine Bilirubin Negative, Urine Urobilinogen 1.0, Ur Leukocyte Esterase Negative, Urine RBC None, Urine WBC Occasional, Ur Squamous Epith Cells None, Urine Bacteria None I & O for Last 24 hours: Intake & Output 11/01/23 11/02/23 11/03/23 11/04/23 23:59 23:59 23:59 23:59 Intake Total 0 / 0 1620 / 1860 240 / 240 Output Total 0 / 0 900 / 900 750 / 750 Balance 0 / 0 720 / 960 -510 / -510 Weight 220 lb 219 lb 15.988 oz 203 lb 2 oz *Routine Respiratory Exam Respiratory: Present CTA bilaterally and symmetric chest movement *Routine Cardiovascular Exam Cardiovascular: Present Normal S1 and Normal S2 *Routine Extremities Exam Extremities: Absent edema Progress Note: A&P Assessment and plan (1) Hyperlipidemia: Status: Acute (2) HTN (hypertension): Status: Acute (3) Coronary artery disease: Status: Acute (4) ST elevation (STEMI) myocardial infarction: Status: Acute (5) Psoriasis: Status: Acute Assessment and Plan Assessment and Plan for All Diagnoses:: Coronary artery disease STEMI -Status post stenting to LAD with 2 BRYSON -Continue DAPT therapy with Effient 10 mg daily and aspirin 81 mg daily -Continue Coreg 6.25 mg p.o. twice daily and atorvastatin 40 mg p.o. daily -LDL goal less than 55, continue high-dose statin -Echocardiogram shows an ejection fraction of 45% with akinetic distal apical LV wall noted. -Telemetry monitoring for 48 hours New onset HFrEF NYHA II-III Ischemic cardiomyopathy -Echocardiogram shows an ejection fraction of 45% with akinetic distal apical LV wall noted. -Will transition patient from irbesartan to Entresto 24/26 mg p.o. twice daily -proBNP on admission was greater than 5000 -Continue Lasix 20 mg p.o. daily -Chest x-ray today negative for acute cardiopulmonary process -Add Aldactone 25 mg daily and Jardiance 10 mg daily. Continue beta-bernice as above Hypertension Tachycardia -Systolic blood pressure greater than 160, heart rate greater than 100 -Will give additional dose of irbesartan this morning as patient has already had morning dose in addition to a one-time dose of 20 mg of Lasix IV. -Tomorrow will transition from irbesartan to Entresto 24/26 mg p.o. twice daily for heart failure with reduced ejection fraction -CT abdomen pelvis: No adrenal mass. Sludge or stones in the gallbladder with gallbladder wall thickening consider right upper quadrant ultrasound. Right upper quadrant ultrasound is pending CV summary 11/04/2023: Blood pressure and pulse rate have greatly improved and within normal limits today. Hyperlipidemia -LDL goal less than 55, LDL is greater than 100, was started on atorvastatin 40 mg p.o. daily 11/02/2023 Tobacco use -Smoking cessation advised CV summary 11/04/2023: Patient has greatly improved since admission and is stable at this time from a cardiovascular standpoint. Patient does have a right upper quadrant ultrasound which is pending, will defer to primary service. Blood pressure is running in the systolic 120s with a pulse less than 100. Recommend continuing guideline directed medical therapy for ischemic cardiomyopathy as outlined below. Patient is CV stable for discharge. Please have patient follow-up in cardiology clinic in 1 week for reevaluation. Please discharge patient home on below listed medications. Cardiac meds for discharge Aspirin 81 mg p.o. daily Effient 10 mg p.o. daily Coreg 6.25 mg p.o. twice daily Atorvastatin 40 mg p.o. daily Entresto 24/26 mg p.o. twice daily Aldactone 25 mg p.o. daily Jardiance 10 mg p.o. daily Lasix 20 mg p.o. daily
--- NOTE | 2023-11-04 10:46 | SW/DCPLANNER ---
I received a consult on this patient regarding depression/anxiety. I did provide this patient w/ an [facility] Resource List. Patient denied thoughts of self harm. Patient is agreeable to outpatient appointment w/ Yosef Forman at time of discharge: I have asked steward/stewardess to please arrange. Patient will discharge home later today.
[2023-11-04 11:26] VITALS: BP 156/113; PULSE 103; RESP 18; TEMP 36.9; O2SAT 98
[2023-11-04] MEDS: SPIRONOLACTONE 25MG TABLET 25 MG PO (12:58)
[2023-11-04] MEDS: EMPAGLIFLOZIN 10MG TABLET 10 MG PO (12:58)
--- NOTE | 2023-11-04 13:27 | US_ITS ---
FINAL REPORT CLINICAL HISTORY: gallstones vs sludge-thickening COMPARISON: None FINDINGS: Sonographic images of the right upper quadrant were obtained. The pancreas is partially obscured.The liver has an unremarkable appearance. There is a small amount of sludge in the gallbladder. There is no evidence of gallstones. There is no evidence of biliary ductal dilatation.The common duct measures 2 mm. Limited images of the right kidney are unremarkable. IMPRESSION: Gallbladder sludge without evidence of stones. Reviewed, Interpreted and Dictated by Jose A Whitman III, MD Transcribed by Kimber Arizmendi Authenticated and [facility]
--- NOTE | 2023-11-04 14:11 | P.DS_ITS ---
General Admission date:: 11/02/23 Discharge date: 11/04/23 HPI HPI HPI: patient is a 33-year-old male with past medical history of anxiety, tobacco use, hypertension hyperlipidemia CAD who presents to the hospital due to chest pain. Patient mentions he has been having intermittent chest pain that is associated with excessive sweating, weakness. Patient also had associated shortness of breath. He was noticed to have ST elevation on EKG. Patient otherwise denied fever chills diarrhea constipation dysuria. Hospital Course Hospital Course Hospital Course: Patient was seen and evaluated at the bedside on the day of discharge. Patient wishes to be discharged. All patient questions were answered and patient was given time to ask questions. Patient was discharged in stable condition. Patient understands that she can return to ER in case of any sudden changes in health. Total time spent on DC - 38 mins Patient is a 33-year-old male with past medical history of anxiety, tobacco use, hypertension hyperlipidemia CAD who presents to the hospital due to chest pain. Patient mentions he has been having intermittent chest pain that is associated with excessive sweating, weakness. Patient also had associated shortness of breath. He was noticed to have ST elevation on EKG. Patient otherwise denied fever chills diarrhea constipation dysuria. Assessment and plan STEMI CAD Elevated proBNP Status post stenting Cardiac meds for discharge Aspirin 81 mg p.o. daily Effient 10 mg p.o. daily Coreg 6.25 mg p.o. twice daily Atorvastatin 40 mg p.o. daily Entresto 24/26 mg p.o. twice daily Aldactone 25 mg p.o. daily Jardiance 10 mg p.o. daily Lasix 20 mg p.o. daily Cardiology ordered -CT abdomen pelvis: No adrenal mass. Sludge or stones in the gallbladder with gallbladder wall thickening consider right upper quadrant ultrasound. RUQ US ordered - pending but can be followed as OP Leukocytosis likely reactive -Monitor Polycythemia Likely secondary to chronic hypoxia/hemoconcentration-monitor Hypertension Continue Coreg, irbesartan Hyperlipidemia Continue statin Tobacco use Counseled on tobacco cessation stable for DC per cardiology Exam Data for Last 24 hours Vital signs and Labs for Last 24 Hours: Temp Pulse Resp BP Pulse Ox O2 Del Method 98.5 F 103 H 18 156/113 H 98 Room Air 11/04/23 11:26 11/04/23 11:26 11/04/23 11:26 11/04/23 11:26 11/04/23 11:26 11/04/23 14:00 Laboratory Results - last 24 hr 11/02/23 14:11: Urine Color Yellow, Urine Appearance Clear, Urine pH 5.5, Ur Specific [place] 1.010, Urine Protein Negative, Urine Glucose (UA) Negative, Urine Ketones 1+, Urine Blood Negative, Urine Nitrate Negative, Urine Bilirubin Negative, Urine Urobilinogen 1.0, Ur Leukocyte Esterase Negative, Urine RBC None, Urine WBC Occasional, Ur Squamous Epith Cells None, Urine Bacteria None I & O for Last 24 hours: Intake & Output 11/01/23 11/02/23 11/03/23 11/04/23 23:59 23:59 23:59 23:59 Intake Total 0 / 0 1620 / 1860 710 / 710 Output Total 0 / 0 900 / 900 750 / 750 Balance 0 / 0 720 / 960 -40 / -40 Weight 99.79 kg 99.79 kg 92.136 kg Constitutional Constitutional: no acute distress *Routine HEENT Exam Head: Present normocephalic Eye: Present EOMI and PERRL ENT: Present mucous membranes moist *Routine Neck Exam Neck: Present supple; Absent lymphadenopathy *Routine Respiratory Exam Respiratory: Present CTA bilaterally *Routine Cardiovascular Exam Cardiovascular: Present RRR *Routine Abdominal Exam Abdominal: Present soft and normoactive bowel sounds; Absent tenderness *Routine Extremities Exam Extremities: Absent cyanosis, clubbing or edema *Routine Skin Exam Skin: Present warm; Absent rash *Routine Neurological Exam Neurological: Present alert and oriented X3 Results Data Completed and Pending Labs on day of discharge: Labs from last 24 hours 11/02/23 14:11 Urine Color Yellow Urine Appearance Clear Urine pH 5.5 Ur Specific [place] 1.010 Urine Protein Negative Urine Glucose (UA) Negative Urine Ketones 1+ Urine Blood Negative Urine Nitrate Negative Urine Bilirubin Negative Urine Urobilinogen 1.0 Ur Leukocyte Esterase Negative Urine RBC None Urine WBC Occasional Ur Squamous Epith Cells None Urine Bacteria None DS: Diagnosis Discharge Diagnosis (1) Hyperlipidemia: Status: Acute Code(s): E78.5 - Hyperlipidemia, unspecified (2) HTN (hypertension): Status: Acute Code(s): I10 - Essential (primary) hypertension (3) Coronary artery disease: Status: Acute Code(s): I25.10 - Atherosclerotic heart disease of [place] coronary artery without angina pectoris (4) ST elevation (STEMI) myocardial infarction: Status: Acute Code(s): I21.3 - ST elevation (STEMI) myocardial infarction of unspecified site (5) Psoriasis: Status: Acute Code(s): L40.9 - Psoriasis, unspecified Meds Home Medications and Allergies Home Medications Medication Instructions Recorded Confirmed Type cholecalciferol (vitamin D3) 25 25 mcg PO DAILY 02/16/23 11/02/23 History mcg (1,000 unit) capsule cyanocobalamin (vitamin B-12) 1,000 mcg PO DAILY 02/16/23 11/02/23 History 1,000 mcg capsule vitamin E (dl, acetate) 450 mg 450 mg PO DAILY 02/16/23 11/02/23 History (1,000 unit) capsule aspirin 81 mg tablet,delayed 81 mg PO DAILY 30 days #30 tabs 11/04/23 Rx release atorvastatin 40 mg tablet 80 mg (2 x 40 mg) PO HS 30 days 11/04/23 Rx #60 tabs carvedilol 6.25 mg tablet 6.25 mg PO BID 30 days #60 tabs 11/04/23 Rx empagliflozin 10 mg tablet 10 mg PO DAILY 30 days #30 tabs 11/04/23 Rx (Jardiance) furosemide 20 mg tablet 20 mg PO DAILY 30 days #30 tabs 11/04/23 Rx hydroxyzine pamoate 25 mg capsule 25 mg PO Q6HP PRN anxiety 14 days 11/04/23 Rx #56 caps prasugrel 10 mg tablet 10 mg PO DAILY 30 days #30 tabs 11/04/23 Rx sacubitril 24 mg-valsartan 26 mg 1 tab PO BID 30 days #60 tabs 11/04/23 Rx tablet (Entresto) spironolactone 25 mg tablet 25 mg PO DAILY 30 days #30 tabs 11/04/23 Rx New Prescriptions to Start Prescriptions: hydroxyzine pamoate Anselmo,Irfan aspirin Anselmo,Irfan atorvastatin Anselmo,Irfan carvedilol Anselmo,Irfan empagliflozin [Jardiance] Anselmo,Irfan furosemide Anselmo,Irfan prasugrel Anselmo,Irfan sacubitril-valsartan [Entresto] Anselmo,Irfan spironolactone Anselmo,Irfan Allergies Allergy/AdvReac Type Severity Reaction Status Date / Time amoxicillin Allergy Intermediate rash Verified 02/16/23 09:34 Discharge Plan Disposition Patient Disposition: Home, Self-Care Condition: Good Discharge Order Discharge Orders: Discharge Order (Routine); Ordered 11/04/23 Ordered By: Sohail Briones Follow up Plan Follow up with: Gisela Forman APRN [Nurse Practitioner] - 12/03/23 11:15 am Constantino Harvey MD [Staff Physician] - Enter time for follow up Prescriptions/Medication Reconciliation: New atorvastatin 40 mg Tablet 80 mg PO HS 30 Days Qty: 60 0RF carvedilol 6.25 mg Tablet 6.25 mg PO BID 30 Days Qty: 60 0RF aspirin 81 mg Tablet,Delayed Release (Dr/Ec) 81 mg PO DAILY 30 Days Qty: 30 0RF Jardiance 10 mg Tablet 10 mg PO DAILY 30 Days Qty: 30 0RF furosemide 20 mg Tablet 20 mg PO DAILY 30 Days Qty: 30 0RF hydroxyzine pamoate 25 mg Capsule 25 mg PO Q6HP PRN (Reason: anxiety) 14 Days Qty: 56 0RF prasugrel 10 mg Tablet 10 mg PO DAILY 30 Days Qty: 30 0RF Entresto 24-26 mg Tablet 1 tab PO BID 30 Days Qty: 60 0RF spironolactone 25 mg Tablet 25 mg PO DAILY 30 Days Qty: 30 0RF Continued cyanocobalamin (vitamin B-12) 1,000 mcg capsule 1,000 mcg PO DAILY cholecalciferol (vitamin D3) 25 mcg (1,000 unit) capsule 25 mcg PO DAILY vitamin E (dl, acetate) 450 mg (1,000 unit) capsule 450 mg PO DAILY Problem Reconciliation Problems Reviewed?: Yes Patient Discharge Instructions ACTIVITY: Ambulate as tolerated DIET: continue same diet Patient Instructions: Heart Attack, Cardiac Catheterization, DI for Surgical Site Infection, Surgical Site Infection Providers Primary Care Provider: Provider,Referral Admit Provider: Sohail Briones Attending Provider: Sohail Briones
--- NOTE | 2023-11-05 14:32 | CARE MANAGER ---
Contacted patient related to hospital discharge. He states he is ok, but he is worried about his anxiety. He only has [address] Delgado is out of the office. Suggested he may try one of the PCP places here, such as [facility] or [facility]. Provided the phone number for [facility]. Denies other questions or concerns. Has meds and is aware of follow up appointment. OLGA Wilson
== END 2023-11-04 16:09 | disposition home or self-care (01) | DRG 321 ==
LOC: ER 13:43 → CATHLAB 13:59 → 2ND 15:18 → ICU 21:41 → 2ND 11-03 09:19
PROVIDERS: Internal Medicine; Nurse Practitioner; Admitting Provider Internal Medicine; Emergency Provider Emergency Medicine; Visit Provider Internal Medicine
PROC: 027034Z Dilation of Coronary Artery, One Artery with Drug-eluting Intraluminal Device, Percutaneous Approach (ICD-10-PCS; principal; 2023-11-02 13:50)
DX: I21.3 ST elevation (STEMI) myocardial infarction of unspecified site (principal); I50.21 Acute systolic (congestive) heart failure; F17.210 Nicotine dependence, cigarettes, uncomplicated; I25.10 Atherosclerotic heart disease of native coronary artery without angina pectoris; F41.9 Anxiety disorder, unspecified; F32.A Depression, unspecified; E78.5 Hyperlipidemia, unspecified; I25.5 Ischemic cardiomyopathy; I11.0 Hypertensive heart disease with heart failure; Z71.6 Tobacco abuse counseling
CPT/HCPCS: 36415; 71045; 74177; 76705; 80048; 80053; 81001; 83722; 83880; 84484; 85007; 85025; 85347; 92941; 93005; 93306; 93308; 93458; 99152; 99153; 99291; C1725; C1760; C1769; C1874; C1876; C9606; J1644; Q9967

== ENCOUNTER 2023-11-05 21:04 | Emergency (ER) | payer OTHER, SELFPAY ==
[2023-11-05 21:06] VITALS: BP 136/89; PULSE 102; RESP 21; TEMP 37.2; O2SAT 98; BMI 29.8
[2023-11-05 21:48] VITALS: BP 121/91; PULSE 107; RESP 17; O2SAT 98
--- NOTE | 2023-11-05 21:53 | PC.NURSE ---
Stool collected and sent to lab.
[2023-11-05 22:02] LABS: Occult Blood,Stool Positive (Negative)
--- NOTE | 2023-11-05 22:02 | HMH.EDGENADL ---
Discharge Plan Disposition Patient Disposition: Home, Self-Care Prescriptions Prescriptions: No Action cyanocobalamin (vitamin B-12) 1,000 mcg capsule 1,000 mcg PO DAILY cholecalciferol (vitamin D3) 25 mcg (1,000 unit) capsule 25 mcg PO DAILY vitamin E (dl, acetate) 450 mg (1,000 unit) capsule 450 mg PO DAILY prochlorperazine maleate 5 mg tablet 5 mg PO BID PRN (Reason: anxiety) Qty: 14 0RF Rx Instructions: 1-2 tabs as needed for anxiety, up to twice a day. atorvastatin 40 mg Tablet 80 mg PO HS 30 Days Qty: 60 0RF carvedilol 6.25 mg Tablet 6.25 mg PO BID 30 Days Qty: 60 0RF aspirin 81 mg Tablet,Delayed Release (Dr/Ec) 81 mg PO DAILY 30 Days Qty: 30 0RF Jardiance 10 mg Tablet 10 mg PO DAILY 30 Days Qty: 30 0RF furosemide 20 mg Tablet 20 mg PO DAILY 30 Days Qty: 30 0RF hydroxyzine pamoate 25 mg Capsule 25 mg PO Q6HP PRN (Reason: anxiety) 14 Days Qty: 56 0RF prasugrel 10 mg Tablet 10 mg PO DAILY 30 Days Qty: 30 0RF Entresto 24-26 mg Tablet 1 tab PO BID 30 Days Qty: 60 0RF spironolactone 25 mg Tablet 25 mg PO DAILY 30 Days Qty: 30 0RF Referrals Follow up/Referrals: Livia Youngblood APRN [Primary Care Provider] - See instructions Activity Restrictions/Add. Instructions Additional Instructions/Restrictions: Continue taking your aspirin and Plavix daily to prevent stents going bad in your heart. 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 If you have large-volume bloody bowel movements, lightheadedness, chest pain, or any other concerns, return to the emergency department for further evaluation. Clinical Impressions Clinical Impression: Melena Instructions Patient Instructions: DI for Gastrointestinal Bleeding Discharge ED Provider: Sal Sin General Adult HPI General Chief complaint: GI Bleed Stated complaint: Put on blood thinner now with dark stool Time Seen by Provider: 11/05/23 21:06 Mode of Arrival: Ambulatory Source of Information: Patient Limitations: No Limitations Description of Symptoms (Recalled from ER Triage Doc. by RN): Pt states he's concerned that there's blood in his stool. Pt had Stents placed this week and started on a blood thinner. Pt's stool was checked here while hospitalized and it was fine. Pt has no other complaints at this time. History of Present Illness HPI narrative: This is a 33-year-old male recent history of STEMI status post stenting just a couple days prior to this visit currently on aspirin and Plavix presenting with concern for dark stool. Patient states that he is intermittently taking supplements with iron. States that he has been having tarry stools since being in the hospital. He is concerned that he is bleeding, and to the emergency department. No abdominal pain, no chest pain, shortness of breath, lightheadedness, neurologic deficits, no other concerns other than dark stool. Related Data Home Medications Medication Instructions Recorded Confirmed cholecalciferol (vitamin D3) 25 25 mcg PO DAILY 02/16/23 11/02/23 mcg (1,000 unit) capsule cyanocobalamin (vitamin B-12) 1,000 mcg PO DAILY 02/16/23 11/02/23 1,000 mcg capsule vitamin E (dl, acetate) 450 mg 450 mg PO DAILY 02/16/23 11/02/23 (1,000 unit) capsule Previous Rx's Medication Instructions Recorded aspirin 81 mg tablet,delayed 81 mg PO DAILY 30 days #30 tabs 11/04/23 release atorvastatin 40 mg tablet 80 mg (2 x 40 mg) PO HS 30 days 11/04/23 #60 tabs carvedilol 6.25 mg tablet 6.25 mg PO BID 30 days #60 tabs 11/04/23 empagliflozin 10 mg tablet 10 mg PO DAILY 30 days #30 tabs 11/04/23 (Jardiance) furosemide 20 mg tablet 20 mg PO DAILY 30 days #30 tabs 11/04/23 hydroxyzine pamoate 25 mg capsule 25 mg PO Q6HP PRN anxiety 14 days 11/04/23 #56 caps prasugrel 10 mg tablet 10 mg PO DAILY 30 days #30 tabs 11/04/23 sacubitril 24 mg-valsartan 26 mg 1 tab PO BID 30 days #60 tabs 11/04/23 tablet (Entresto) spironolactone 25 mg tablet 25 mg PO DAILY 30 days #30 tabs 11/04/23 prochlorperazine maleate 5 mg 5 mg PO BID PRN anxiety #14 tabs 11/05/23 tablet Allergies Allergy/AdvReac Type Severity Reaction Status Date / Time amoxicillin Allergy Intermediate rash Verified 02/16/23 09:34 [facility] Disclaimer: The information contained in this section may have been updated after the patient was seen, as this information can be updated by other users. Medical History (Updated 11/05/23 @ 22:54 by Sal Sin MD) Anxiety and depression Anxiety Hypertension Surgical History (Updated 02/16/23 @ 09:36 by OG Morales) Hx of tonsillectomy Social History (Updated 11/02/23 @ 16:05 by Monika Varela RN) Smoking Status: Former smoker tobacco type: cigarettes packs per day: 1 years smoked: 20 quit status: not considering quitting alcohol intake: former substance use type: other details: marijuana counseling given: Yes current occupational status: unemployed Travel in the last 8 weeks: None household members: other details: grandmother housing: house marital status: single number of children: 0 ROS Obtained: Yes All systems reviewed & no additional complaints except as documented Physical Exam General General appearance: alert and in no apparent distress Head Head exam: atraumatic and normocephalic Eye Eye exam: Present normal appearance, PERRL and EOMI ENT ENT exam: Present mucous membranes moist Neck Neck exam: Present normal inspection, full ROM and trachea midline Respiratory Respiratory exam: Absent respiratory distress, wheezes, stridor, accessory muscle use or prolonged expiratory phase Cardiovascular Cardiovascular exam: Present normal rhythm Abdominal Exam Abdominal exam: Present soft; Absent distention, tenderness, guarding, rebound or rigidity Extremities Exam Extremities exam: Absent edema Neurological Exam Neurological exam: Present alert, oriented X3, CN II-XII intact and normal gait; Absent motor sensory deficit Skin Skin exam: Present warm and dry; Absent diaphoresis or erythema Medical Decision Making Medical Records Medical records reviewed: Yes I reviewed the patient's medical records. Sung Inquiry Pt receiving controlled substance: No Sung was queried for this patient: No Vital Signs: 11/05/23 21:06 11/05/23 21:48 11/05/23 22:04 Temperature 98.9 F Temperature Source Oral Pulse Rate 107 H 97 H Pulse Rate [Left] 102 H Respiratory Rate 21 17 20 Blood Pressure 121/91 H 142/96 H Blood Pressure [Right Arm] 136/89 Blood Pressure Mean 103 Blood Pressure Mean [Right Arm] 104 Blood Pressure Source [Right Arm] Automatic Cuff Blood Pressure Position [Right Arm] Sitting 02 Sat by Pulse Oximetry 98 98 98 Oxygen Delivery Method Room Air Room Air 11/05/23 22:57 Temperature 98.1 F Temperature Source Pulse Rate 85 Pulse Rate [Left] Respiratory Rate 18 Blood Pressure 124/86 Blood Pressure [Right Arm] Blood Pressure Mean Blood Pressure Mean [Right Arm] Blood Pressure Source [Right Arm] Blood Pressure Position [Right Arm] 02 Sat by Pulse Oximetry Oxygen Delivery Method Lab Data Lab Results 11/05/23 21:49: Stool Occult Blood Positive A 11/05/23 21:55: WBC 9.0 D, RBC 5.03, Hgb 16.0, Hct 47.9, MCV 95.2 H, MCH 31.8 H, MCHC 33.4, RDW 13.5, Plt Count 322, MPV 7.7, Neut % (Auto) 73.4, Lymph % (Auto) 13.0, Guthrie % (Auto) 11.4 H, Eos % (Auto) 1.4, Baso % (Auto) 0.8, Neut # (Auto) 6.6, Lymph # (Auto) 1.2, Guthrie # (Auto) 1.0, Eos # (Auto) 0.1, Baso # (Auto) 0.1, PT 11.6, INR 1.08, APTT 31.5 H, Sodium 138, Potassium 4.1, Chloride 105, Carbon Dioxide 22, Anion Gap 15.1 H, BUN 22 H, Creatinine 1.00, Estimated Creat Clear 134, Estimated GFR 85, Est GFR ( Amer) 103, Glucose 118 H, Calcium 9.5, Total Bilirubin 0.7, AST 63 H, ALT 47, Alkaline Phosphatase 63, Total Protein 7.9, Albumin 4.4, Globulin 3.5 H, Albumin/Globulin Ratio 1.3 11/05/23 21:55 11/05/23 21:55 Orders (Tests/Meds): ORDERS Category Date Time Status CBC w/Auto Diff [Complete Blood Count Auto Diff] Stat Lab 11/05/23 21:55 Completed CMP [Comprehensive Metabolic Panel] Stat Lab 11/05/23 21:55 Completed Occult Blood,Stool Stat Lab 11/05/23 21:49 Completed PT INR [Prothrombin Time INR] Stat Lab 11/05/23 21:55 Completed PTT [Activated Partial Thrombo Time] Stat Lab 11/05/23 21:55 Completed Medical Decision Narrative: This is a 33-year-old male recent history of STEMI status post stenting just a couple days prior to this visit currently on aspirin and Plavix presenting with concern for dark stool. Patient states that he is intermittently taking supplements with iron. States that he has been having tarry stools since being in the hospital. He is concerned that he is bleeding, and to the emergency department. No abdominal pain, no chest pain, shortness of breath, lightheadedness, neurologic deficits, no other concerns other than dark stool. History was obtained via conversation with patient. On arrival, patient hemodynamically stable, alert, oriented x4, appropriate, GCS 15, moving all extremities spontaneously, pupils equal and reactive to light. Full physical exam performed and significant for well-appearing male no acute distress. Abdomen is soft, nontender, nondistended. Mildly tachycardic, normotensiv. Differential includes diarrhea, lower GI bleed, upper GI bleed, iron supplementation, among others. Patient was given fluid bolus for symptomatic management and correction of underlying abnormalities. Workup independently interpreted and significant for hemoglobin of 16. BUN 22, creatinine normal. LFTs nonactionable. Patient's fecal occult blood positive. CTA of the chest abdomen pelvis was considered, but not deemed necessary at this time. Patient normotensive, nontachycardic, no signs or symptoms of symptomatic anemia, hemoglobin of 16. Because dark stool, likely to be negative. 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 Also recommended that he stop taking iron supplementation. Because patient at baseline without signs or symptoms of clinical decompensation, deemed appropriate for discharge. Results were relayed to patient who voiced understanding and were agreeable to outpatient management and follow up. At the time of discharge the patient was hemodynamically stable, tolerating PO, and mobilizing appropriately. Critical Care Critical Care Time Critical Care Time: No
[2023-11-05 22:04] VITALS: BP 142/96; PULSE 97; RESP 20; O2SAT 98
[2023-11-05 22:19] LABS: Basophils # 0.1 K/mm3 (0-0.2); Basophils % 0.8 % (0.1-2.0); Eosinophils # 0.1 K/mm3 (0.0-0.4); Eosinophils % 1.4 % (0.1-12.0); Hematocrit 47.9 % (42.0-52.0); Lymphocytes # 1.2 K/mm3 (0.7-4.5); Mean Corpuscular HGB Conc 33.4 g/dL (31.8-35.4); Mean Corpuscular Hemoglobin 31.8 pg (27.0-31.2); Mean Corpuscular Volume 95.2 fl (80-94); Mean Platelet Volume 7.7 fl (7.4-10.4); Monocytes % 11.4 % (1.7-9.3); Neutrophils # 6.6 K/mm3 (1.8-7.8); Neutrophils % 73.4 % (37.0-80.0); Platelet Count 322 K/mm3 (142-424); Red Blood Count 5.03 M/mm3 (4.60-6.20); Red Cell Distribution Width 13.5 % (11.5-17.5)
[2023-11-05 22:26] LABS: Activated Partial Thrombo Time 31.5 seconds (22.8-30.6); Alanine Aminotransferase 47 U/L (12-78); Albumin Level 4.4 g/dl (3.5-5.0); Albumin/Globulin Ratio 1.3 (1.1-1.8); Alkaline Phosphatase 63 U/L (38-126); Aspartate Amino Transferase 63 U/L (17-59); Bilirubin,Total 0.7 mg/dl (0.2-1.3); Blood Urea Nitrogen 22 mg/dl (9-20); Calcium 9.5 mg/dl (8.4-10.2); Carbon Dioxide 22 mmol/L (22.0-30.0); Creatinine Clearance Estimated 134 mL/min (50-200); Estimated Glomerular Filt Rate 85 ml/min (>60); GFR (African American) 103 ML/MIN (>60); Globulin 3.5 g/dL (1.3-3.2); Glucose 118 mg/dl (74-100); INR 1.08 (0.9-1.1); Potassium 4.1 mmoL/L (3.5-5.1); Prothrombin Time 11.6 seconds (10.1-12.5); Sodium 138 mmol/L (136-145); Total Protein,Serum 7.9 g/dl (6.3-8.2)
[2023-11-05 22:31] LABS: Anion Gap 15.1 mEq/L (5-15); Chloride 105 mmol/L (98-107)
[2023-11-05 22:57] VITALS: BP 124/86; PULSE 85; RESP 18; TEMP 36.7
== END 2023-11-05 23:01 | disposition home or self-care (01) ==
PROVIDERS: Emergency Provider Emergency Medicine; PCP Nurse Practitioner Family
DX: K92.1 Melena (principal); I10 Essential (primary) hypertension; I25.2 Old myocardial infarction; Z79.02 Long term (current) use of antithrombotics/antiplatelets; Z79.82 Long term (current) use of aspirin; Z87.891 Personal history of nicotine dependence; R00.0 Tachycardia, unspecified
CPT/HCPCS: 80053; 82272; 85025; 85610; 85730; 99285; G0328

== ENCOUNTER 2023-11-24 12:49 | Outpatient (CLI) | payer OTHER, SELFPAY ==
--- NOTE | 2023-11-24 12:56 | CA_ITS ---
APPROVED REPORT EXAM: Limited 2D Echocardiogram [employer] Associate: Gabrielle Spaulding CRT Ht: 5 ft 9 in Wt: 188lbs BSA: 2.01 BP: 122/85 mmHg Indications: Pericardial Effusion CHECK M-Mode Dimensions RVDd 2.81 cm (0.9-2.6) LVDd 4.93 cm (3.5-5.7) LVDs 3.56 cm (3.5-5.7) IVSd 1.64 cm (0.6-1.1) PWd 0.71 cm (0.6-1.1) EF (Teich) 53.70% FS 27.80% EDV (Teich) 114.40 mL ESV (Teich) 53.00 mL Other Information Study Quality: Fair Conclusion This is a limited TTE to evaluate for pericardial effusion. Limited windows were obtained. There is mild to moderate reduction in LV systolic function. The LV distal and apical LV almanza are nearly akinetic. LVEF is 40%. There is no evidence of pericardial effusion in the available images. Electronically signed by : Swathi Singleton MD 11/25/2023 12:22:13
[2023-11-24 13:52] LABS: Basophils # 0.1 K/mm3 (0-0.2); Eosinophils # 0.1 K/mm3 (0.0-0.4); Eosinophils % 1.4 % (0.1-12.0); Hematocrit 46.8 % (42.0-52.0); Hemoglobin 15.1 g/dL (14.1-18.0); Lymphocytes # 1.5 K/mm3 (0.7-4.5); Lymphocytes % 21.5 % (10-50); Mean Corpuscular HGB Conc 32.2 g/dL (31.8-35.4); Mean Corpuscular Hemoglobin 30.2 pg (27.0-31.2); Mean Corpuscular Volume 93.8 fl (80-94); Mean Platelet Volume 7.1 fl (7.4-10.4); Monocytes # 0.4 K/mm3 (0.1-1.0); Monocytes % 6.3 % (1.7-9.3); Neutrophils # 4.8 K/mm3 (1.8-7.8); Neutrophils % 69.9 % (37.0-80.0); Platelet Count 545 K/mm3 (142-424); Red Blood Count 4.99 M/mm3 (4.60-6.20); Red Cell Distribution Width 13.1 % (11.5-17.5); White Blood Count 6.8 K/mm3 (4.8-10.8)
[2023-11-24 14:24] LABS: Chloride 106 mmol/L (98-107); Potassium 4.2 mmoL/L (3.5-5.1); Sodium 140 mmol/L (136-145)
[2023-11-24 14:26] LABS: Blood Urea Nitrogen 11 mg/dl (9-20); Estimated Glomerular Filt Rate 96 ml/min (>60); GFR (African American) 116 ML/MIN (>60)
[2023-11-24 14:27] LABS: Alanine Aminotransferase 88 U/L (12-78); Albumin Level 4.2 g/dl (3.5-5.0); Albumin/Globulin Ratio 1.3 (1.1-1.8); Alkaline Phosphatase 97 U/L (38-126); Anion Gap 12.2 mEq/L (5-15); Aspartate Amino Transferase 51 U/L (17-59); Bilirubin,Total 0.5 mg/dl (0.2-1.3); Calcium 10.2 mg/dl (8.4-10.2); Carbon Dioxide 26 mmol/L (22.0-30.0); Chol/HDL Ratio 3.8 (1-3.5); Cholesterol 111 mg/dl (140-200); Globulin 3.3 g/dL (1.3-3.2); Glucose 100 mg/dl (74-100); HDL Cholesterol 29 mg/dl (40-60); Total Protein,Serum 7.5 g/dl (6.3-8.2); Triglycerides 80 mg/dl (30-150); VLDL Cholesterol 16 mg/dL (0-40)
[2023-11-24 14:38] LABS: Direct LDL Cholesterol 66.71 mg/dL (100-129)
== END 2023-11-24 23:59 ==
LOC: RT 12:50
PROVIDERS: PCP Nurse Practitioner Family; Visit Provider Physician Assistant
DX: R94.31 Abnormal electrocardiogram [ECG] [EKG] (principal); I11.9 Hypertensive heart disease without heart failure; I25.118 Atherosclerotic heart disease of native coronary artery with other forms of angina pectoris; I21.02 ST elevation (STEMI) myocardial infarction involving left anterior descending coronary artery; R53.83 Other fatigue; E78.01 Familial hypercholesterolemia; L40.9 Psoriasis, unspecified; Z87.891 Personal history of nicotine dependence
CPT/HCPCS: 36415; 80053; 80061; 85025; 93308

== ENCOUNTER 2024-01-05 10:07 | Outpatient (CLI) | payer OTHER, SELFPAY ==
[2024-01-05] MEDS: SODIUM CHLORIDE 0.9% 50ML BAG 25 ML IV (11:52)
[2024-01-05] MEDS: GADOTERIDOL INJ 17ML SYRINGE 20 ML IV (11:52)
== END 2024-01-05 23:59 | disposition home or self-care (01) ==
LOC: RAD 10:08
PROVIDERS: PCP Nurse Practitioner Family; Visit Provider Nurse Practitioner
DX: I50.20 Unspecified systolic (congestive) heart failure (principal)
CPT/HCPCS: 75561; A9576

== ENCOUNTER 2024-06-06 13:24 | Outpatient (CLI) | payer OTHER, SELFPAY ==
[2024-06-06 14:19] LABS: Basophils # 0.1 K/mm3 (0-0.2); Basophils % 0.6 % (0.1-2.0); Eosinophils # 0.1 K/mm3 (0.0-0.4); Eosinophils % 1.7 % (0.1-12.0); Hemoglobin 15.5 g/dL (14.1-18.0); Lymphocytes # 1.9 K/mm3 (0.7-4.5); Lymphocytes % 22.5 % (10-50); Mean Corpuscular HGB Conc 34.5 g/dL (31.8-35.4); Mean Corpuscular Hemoglobin 31.8 pg (27.0-31.2); Mean Corpuscular Volume 92.3 fl (80-94); Mean Platelet Volume 7.1 fl (7.4-10.4); Monocytes # 0.6 K/mm3 (0.1-1.0); Monocytes % 7.2 % (1.7-9.3); Neutrophils # 5.6 K/mm3 (1.8-7.8); Platelet Count 337 K/mm3 (142-424); Red Blood Count 4.88 M/mm3 (4.60-6.20); Red Cell Distribution Width 13.7 % (11.5-17.5); White Blood Count 8.2 K/mm3 (4.8-10.8)
[2024-06-06 14:21] LABS: Albumin Level 4.7 g/dl (3.5-5.0); Chloride 108 mmol/L (98-107); Sodium 141 mmol/L (136-145)
[2024-06-06 14:22] LABS: Potassium 3.9 mmoL/L (3.5-5.1)
[2024-06-06 14:24] LABS: Alanine Aminotransferase 46 U/L (12-78); Alkaline Phosphatase 62 U/L (38-126); Anion Gap 12.9 mEq/L (5-15); Aspartate Amino Transferase 34 U/L (17-59); Bilirubin,Direct 0.1 mg/dl (0.0-0.4); Bilirubin,Indirect 0.4 mg/dL (0.0-0.9); Bilirubin,Total 0.5 mg/dl (0.2-1.3); Bilirubin,Unconjugated 0.3 mg/dL (0.0-1.1); Blood Urea Nitrogen 9 mg/dl (9-20); Calcium 9.8 mg/dl (8.4-10.2); Carbon Dioxide 24 mmol/L (22.0-30.0); Cholesterol 157 mg/dl (140-200); Estimated Glomerular Filt Rate 96 ml/min (>60); GFR (African American) 116 ML/MIN (>60); Glucose 127 mg/dl (74-100); Total Protein,Serum 7.8 g/dl (6.3-8.2); Triglycerides 150 mg/dl (30-150); VLDL Cholesterol 30 mg/dL (0-40)
[2024-06-06 14:25] LABS: Chol/HDL Ratio 5.4 (1-3.5); HDL Cholesterol 29 mg/dl (40-60)
[2024-06-06 14:35] LABS: Direct LDL Cholesterol 93.91 mg/dL (100-129)
[2024-06-06 14:56] LABS: Free T4 (Free Thyroxine) 1.41 ng/dl (0.78-2.19)
== END 2024-06-06 23:59 | disposition home or self-care (01) ==
LOC: LAB 13:24
PROVIDERS: PCP Nurse Practitioner Family; Visit Provider Nurse Practitioner
DX: R42 Dizziness and giddiness (principal); I25.5 Ischemic cardiomyopathy; I50.20 Unspecified systolic (congestive) heart failure; E78.01 Familial hypercholesterolemia; I10 Essential (primary) hypertension; I25.118 Atherosclerotic heart disease of native coronary artery with other forms of angina pectoris
CPT/HCPCS: 36415; 80048; 80061; 80076; 83735; 84439; 84443; 85025

== ENCOUNTER 2025-05-18 12:37 | Outpatient (CLI) | payer OTHER, SELFPAY ==
[2025-05-18 13:00] LABS: Hematocrit 47.0 % (42.0-52.0); Hemoglobin 15.3 g/dL (14.1-18.0); Immature Granulocytes % 0.3 %; Mean Corpuscular HGB Conc 32.6 g/dL (31.8-35.4); Mean Corpuscular Hemoglobin 30.4 pg (27.0-31.2); Mean Corpuscular Volume 93.4 fl (80-94); Nucleated Red Blood Cells % 0 %; Platelet Count 379 K/mm3 (142-424); Red Blood Count 5.03 M/mm3 (4.60-6.20); Red Cell Distribution Width-SD 44.1 fL; White Blood Count 8.0 K/mm3 (4.8-10.8)
--- NOTE | 2025-05-18 13:00 | CA_ITS ---
APPROVED REPORT EXAM: Limited 2D Echocardiogram Arc Cutter: Selena Weston, RCS, RVS Ht: 5 ft 9 in Wt: 226lbs BSA: 2.18 BP: 124/85 mmHg Indications: CAD-WI, LVF check M-Mode Dimensions RVDd 1.54 cm (0.9-2.6) LA Diam 3.54 cm (1.9-4.0) LVDd 4.56 cm (3.5-5.7) LVDs 3.12 cm (3.5-5.7) IVSd 1.26 cm (0.6-1.1) PWd 1.15 cm (0.6-1.1) EF (Teich) 59.60% EPSs 0.72 cm FS 31.60% EDV (Teich) 95.40 mL ESV (Teich) 38.50 mL Other Information Study Quality: Technically Difficult Conclusion This is a limited TTE to evaluate for LV systolic function. Limited windows are obtained. Technically difficult study. The left ventricle is normal in size but there is increased LV wall thickness. There is mild reduction in LV systolic function. There is moderate hypokinesis of the distal inferior, inferolateral, and apical LV almanza. LVEF is 45-50%. There is no administration of ultrasound enhancing agent, therefore ruling out apical thrombus or aneurysm is not possible in the study. Future TTE evaluations are suggested with administration of ultrasound enhancing agent. Electronically signed by : Swathi Singleton MD 05/21/2025 12:04:22
[2025-05-18 14:08] LABS: Chloride 103 mmol/L (98-107)
[2025-05-18 14:09] LABS: Albumin Level 5.2 g/dl (3.5-5.0); Potassium 3.9 mmoL/L (3.5-5.1); Sodium 141 mmol/L (136-145)
[2025-05-18 14:11] LABS: Bilirubin,Unconjugated 0.7 mg/dL (0.0-1.1); Blood Urea Nitrogen 9 mg/dl (9-20); Creatinine,Serum 0.80 mg/dl (0.66-1.25); Estimated Glomerular Filt Rate 109 ml/min (>60); GFR (African American) 132 ML/MIN (>60)
[2025-05-18 14:12] LABS: Alanine Aminotransferase 45 U/L (12-78); Alkaline Phosphatase 71 U/L (38-126); Anion Gap 15.9 mEq/L (5-15); Aspartate Amino Transferase 46 U/L (17-59); Bilirubin,Direct 0.2 mg/dl (0.0-0.4); Bilirubin,Indirect 0.7 mg/dL (0.0-0.9); Bilirubin,Total 0.9 mg/dl (0.2-1.3); Calcium 9.7 mg/dl (8.4-10.2); Carbon Dioxide 26 mmol/L (22.0-30.0); Cholesterol 117 mg/dl (140-200); Glucose 103 mg/dl (74-100); HDL Cholesterol 26 mg/dl (40-60); Magnesium 2.2 mg/dl (1.6-2.3); Total Protein,Serum 7.7 g/dl (6.3-8.2); Triglycerides 108 mg/dl (30-150)
[2025-05-18 14:29] LABS: Free T4 (Free Thyroxine) 1.06 ng/dl (0.78-2.19)
[2025-05-18 14:42] LABS: Thyroid Stimulating Hormone 1.90 uIU/mL (0.465-4.68)
== END 2025-05-18 23:59 | disposition home or self-care (01) ==
LOC: RT 12:40
PROVIDERS: PCP Nurse Practitioner Family; Visit Provider Nurse Practitioner
DX: I11.0 Hypertensive heart disease with heart failure (principal); I50.20 Unspecified systolic (congestive) heart failure; I25.5 Ischemic cardiomyopathy; E78.5 Hyperlipidemia, unspecified; I25.10 Atherosclerotic heart disease of native coronary artery without angina pectoris; R93.1 Abnormal findings on diagnostic imaging of heart and coronary circulation
CPT/HCPCS: 36415; 80048; 80061; 80076; 83735; 84439; 84443; 85025; 93308